=== PATIENT | male | born 1960 | race Caucasian/White ===

== ENCOUNTER → 2016-11-18 | Outpatient (CLI) | payer OTHER ==
[~2016-11-18] MED LIST: ANT25 PO; CLC100 PO; OMEP10CA2 PO; PRED20TA PO; SILD1TAB11 PO
== END | disposition home or self-care (01) ==
LOC: C.LABBC 13:15
PROVIDERS: ATTEND Urology
DX: C61 Malignant neoplasm of prostate (principal)

== ENCOUNTER 2017-01-03 12:36 | Emergency (ER) | payer OTHER ==
[~2017-01-03] VITALS: Ht 177.8 cm; Wt 74.8 kg
[~2017-01-03 12:36] MED LIST changes: -ANT25 PO; -PRED20TA PO
[2017-01-03 12:37] VITALS: TEMP 36.5; Ht 177.8 cm; Wt 74.8 kg
[2017-01-03] MEDS ORDERED: SODIUM CHLORIDE 0.9% 1000ML 1,000 ML IV STA (13:15)
[2017-01-03] MEDS ORDERED: MECLIZINE HCL 25 MG TAB PO STA (13:15)
[2017-01-03] MEDS ORDERED: METHYLPREDNISOLONE 125 MG VIAL IV STA (13:15)
[2017-01-03] MEDS ORDERED: SODIUM CHLORIDE 0.9% 500ML 500 ML IV STA (13:15)
[2017-01-03 13:39] LABS: BASO % 0.6 %; BASO ABS # 0.04 K/uL (0-0.2); COMPLETE YES; EOS % 0.8 %; HEMATOCRIT 42.5 % (42-52); IG% 0.2 %; LYMPH % 38.2 %; LYMPH ABS # 2.39 K/uL (1.2-3.4); MEAN CELL VOLUME 92.8 fL (80-100); MEAN CORPUSCULAR HEMOGLOBIN 32.1 pg (25-34); MEAN CORPUSCULAR HGB CONC 34.6 g/dl (32-36); MEAN PLATELET VOLUME 9.5 fL (7.4-10.4); MONO % 7.2 %; PLATELET COUNT 246 K/uL (130-400); RED BLOOD COUNT 4.58 M/uL (4.7-6.1); WHITE BLOOD COUNT 6.26 K/uL (4.8-10.8)
[2017-01-03 13:46] LABS: ALT/SGPT 15 U/L (12-78); AST/SGOT 16 U/L (15-37); BLOOD UREA NITROGEN 19 mg/dl (7-18); BUN/CREATININE RATIO 17.7 (10-20); CALCIUM 8.6 mg/dl (8.5-10.1); CARBON DIOXIDE 29 mmol/L (21-32); CHLORIDE 105 mmol/L (98-107); GLUCOSE 132 mg/dl (70-99); MAGNESIUM 2.3 mg/dl (1.8-2.4); POTASSIUM 3.6 mmol/L (3.5-5.1); SODIUM 143 mmol/L (136-145)
[2017-01-03 13:49] LABS: ALKALINE PHOSPHATASE 62 U/L (45-117)
--- NOTE | 2017-01-03 14:14 | DIAGNOSTIC IMAGING REPORT ---
CT OF THE HEAD WITHOUT CONTRAST CLINICAL HISTORY: Vertigo. COMPARISON STUDY: No previous studies for comparison. CT DOSE: 537.48 mGy.cm TECHNIQUE: Helical axial images of the head were obtained without IV contrast. Automated exposure control was utilized for the study. FINDINGS: No acute intracranial hemorrhage, midline shift or mass effect is present. Ventricular system is normal. Basilar cisterns are patent. There are no extra-axial collections. Sheets-white differentiation is maintained. There are no findings to suggest acute dural sinus thrombosis or acute territorial infarct. There is no calvarial fracture. Visualized portions of the sinuses and the mastoid air cells are clear. IMPRESSION: No acute intracranial findings. Electronically signed by: Artur Torres M.D. 01/03/2017 2:13 PM Dictated Date/Time: 01/03/2017 2:10 PM
[2017-01-03] MEDS ORDERED: PRED20TA PO (16:26)
[2017-01-03] MEDS ORDERED: ANT25 PO (16:26)
--- NOTE | 2017-01-03 16:33 | EMERGENCY ROOM VISIT NOTE ---
History Report prepared by Ricky: Fatoumata Moreno Under the Supervision of: Dr. Tigist Rodriguez M.D. First contact with patient: 13:09 Chief Complaint: DIZZY Stated Complaint: DIZZY, SWEATY, NEAR SYNCOPE Nursing Triage Summary: Patient reports sudden onset of dizziness and cold clammy feeling while standing at work states this happened aroundf [id number]. Patient cool clammy and dizzy on arrival to ED also pale in color. History of Present Illness The patient is a 56 year old male who presents to the Emergency Room with complaints of persistent dizziness starting this morning. He was at work standing at his desk when he started feeling dizzy like he might pass out. He reports room spinning which worsens with changing position and moving. He sat down and felt better after eating a candy bar. He drove home and felt dizzy again when he got out of the car. He has never experienced this dizziness before. He is currently feeling better. He has been more pale lately. He denies any nausea, vomiting, chest pain or SOB with exertion. He has not had any cough , cold, or allergies recently. He exercises regularly without trouble. He does not smoke. He denies any other medical problems. Source of History: patient Onset: this morning Position: other (global) Quality: other (dizziness) Timing: other (persistent) Modifying Factors (Worsening): movement Associated Symptoms: No SOB, No chest pain, No cough, No nausea, No vomiting Note: Pt reports being pale. Review of Systems See HPI for pertinent positives & negatives. A total of 10 systems reviewed and were otherwise negative. Past Medical & Surgical Surgical Problems: (1) S/P cholecystectomy Family History Cancer Diabetes mellitus Gallbladder disease Hypertension Social History Smoking Status: Never Smoker Alcohol Use: occasionally Drug Use: none Marital Status: Housing Status: lives with family Occupation Status: employed Current/Historical Medications Scheduled Omeprazole (Prilosec), 20 MG PO BID Prednisone (Prednisone), 40 MG PO DAILY Sildenafil Citrate (Viagra), 25 MG PO PRN Scheduled PRN Meclizine HCl (Meclizine HCl), 1 TAB PO Q8 PRN for vertigo Allergies Coded Allergies: NO KNOWN DRUG ALLERGIES (Verified Allergy, Unknown, NKDA, 01/03/17) Uncoded Allergies: Seasonal Allergies (Allergy, Mild, Respiratory , 04/10/15) Physical Exam Vital Signs Date Time Temp Pulse Resp B/P Pulse Ox O2 Delivery O2 Flow Rate FiO2 01/03/17 16:53 61 18 121/69 98 01/03/17 15:33 115/73 01/03/17 15:31 46 7 100 01/03/17 15:26 51 8 100 01/03/17 15:21 59 16 100 01/03/17 15:16 48 10 100 01/03/17 15:06 55 19 100 01/03/17 15:01 50 11 100 01/03/17 14:56 52 5 100 01/03/17 14:51 63 11 100 01/03/17 14:46 48 13 100 01/03/17 14:41 48 8 100 01/03/17 14:36 57 5 99 01/03/17 14:31 48 6 100 01/03/17 14:31 44 16 136/64 100 Room Air 01/03/17 14:30 136/64 01/03/17 14:06 54 01/03/17 13:36 72 15 01/03/17 13:36 46 16 121/72 99 Room Air 01/03/17 13:35 121/72 01/03/17 12:52 126/73 01/03/17 12:49 47 138/74 55 126/73 01/03/17 12:37 36.5 58 20 166/73 100 Room Air Physical Exam Vital signs reviewed. General: Well-appearing, in no significant distress. HEENT: No scleral icterus, PERRLA, neck supple. Atraumatic. Cardiovascular: Regular rate and rhythm, no extra sounds. Pulmonary: Clear to auscultation bilaterally, normal work of breathing. Abdomen: Soft, nontender, nondistended, positive bowel sounds. Musculoskeletal: Atraumatic, no peripheral edema. Neurologic: Patient awake alert and oriented x 3, full strength in all 4 extremities. Cranial nerves 2 through 12 grossly intact. Skin: Warm, dry, no rash Medical Decision & Procedures ER Provider Diagnostic Interpretation: Radiology results as stated below per my review and radiologist interpretation: CT OF THE HEAD WITHOUT CONTRAST CLINICAL HISTORY: Vertigo. COMPARISON STUDY: No previous studies for comparison. CT DOSE: 537.48 mGy.cm TECHNIQUE: Helical axial images of the head were obtained without IV contrast. Automated exposure control was utilized for the study. FINDINGS: No acute intracranial hemorrhage, midline shift or mass effect is present. Ventricular system is normal. Basilar cisterns are patent. There are no extra-axial collections. Sheets-white differentiation is maintained. There are no findings to suggest acute dural sinus thrombosis or acute territorial infarct. There is no calvarial fracture. Visualized portions of the sinuses and the mastoid air cells are clear. IMPRESSION: No acute intracranial findings. Electronically signed by: Artur Torres M.D. 01/03/2017 2:13 PM Dictated Date/Time: 01/03/2017 2:10 PM Laboratory Results 01/03/17 12:45 Red Blood Count 4.58, Mean Corpuscular Volume 92.8, Mean Corpuscular Hemoglobin 32.1, Mean Corpuscular Hemoglobin Concent 34.6, Mean Platelet Volume 9.5, Neutrophils (%) (Auto) 53.0, Lymphocytes (%) (Auto) 38.2, Monocytes (%) (Auto) 7.2, Eosinophils (%) (Auto) 0.8, Basophils (%) (Auto) 0.6, Neutrophils # (Auto) 3.32, Lymphocytes # (Auto) 2.39, Monocytes # (Auto) 0.45, Eosinophils # (Auto) 0.05, Basophils # (Auto) 0.04 01/03/17 12:45 Test 01/03/17 12:45 White Blood Count 6.26 K/uL (4.8-10.8) Red Blood Count 4.58 M/uL (4.7-6.1) Hemoglobin 14.7 g/dL (14.0-18.0) Hematocrit 42.5 % (42-52) Mean Corpuscular Volume 92.8 fL (80-100) Mean Corpuscular Hemoglobin 32.1 pg (25-34) Mean Corpuscular Hemoglobin Concent 34.6 g/dl (32-36) Platelet Count 246 K/uL (130-400) Mean Platelet Volume 9.5 fL (7.4-10.4) Neutrophils (%) (Auto) 53.0 % Lymphocytes (%) (Auto) 38.2 % Monocytes (%) (Auto) 7.2 % Eosinophils (%) (Auto) 0.8 % Basophils (%) (Auto) 0.6 % Neutrophils # (Auto) 3.32 K/uL (1.4-6.5) Lymphocytes # (Auto) 2.39 K/uL (1.2-3.4) Monocytes # (Auto) 0.45 K/uL (0.11-0.59) Eosinophils # (Auto) 0.05 K/uL (0-0.5) Basophils # (Auto) 0.04 K/uL (0-0.2) RDW Standard Deviation 42.4 fL (36.4-46.3) RDW Coefficient of Variation 12.5 % (11.5-14.5) Immature Granulocyte % (Auto) 0.2 % Immature Granulocyte # (Auto) 0.01 K/uL (0.00-0.02) Anion Gap 9.0 mmol/L (3-11) Est Creatinine Clear Calc Drug Dose 75.6 ml/min Estimated GFR () 85.3 Estimated GFR (Non- 73.6 BUN/Creatinine Ratio 17.7 (10-20) Calcium Level 8.6 mg/dl (8.5-10.1) Magnesium Level 2.3 mg/dl (1.8-2.4) Total Bilirubin 0.4 mg/dl (0.2-1) Direct Bilirubin < 0.1 mg/dl (0-0.2) Aspartate Amino Transf (AST/SGOT) 16 U/L (15-37) Alanine Aminotransferase (ALT/SGPT) 15 U/L (12-78) Alkaline Phosphatase 62 U/L (45-117) Total Protein 7.3 gm/dl (6.4-8.2) Albumin 4.3 gm/dl (3.4-5.0) Laboratory results per my review. Medications Administered Medications (Trade) Dose Ordered Sig/Debo Route Start Time Stop Time Status Last Admin Dose Admin Sodium Chloride 500 ml @ 999 mls/hr Q31M STAT IV 01/03/17 13:15 01/03/17 13:45 DC 01/03/17 13:15 999 MLS/HR Sodium Chloride (Nss 1000ml) 1,000 ml @ 150 mls/hr Q6H40M STAT IV 01/03/17 13:15 01/03/17 17:11 DC 01/03/17 13:15 150 MLS/HR Meclizine HCl (Antivert Tab) 25 mg NOW STAT PO 01/03/17 13:15 01/03/17 13:21 DC 01/03/17 13:35 25 MG Methylprednisolone Sodium Succinate (Solu-Medrol IV) 125 mg NOW STAT IV 01/03/17 13:15 01/03/17 13:21 DC 01/03/17 13:36 125 MG Meclizine HCl (Antivert 25MG Home Pack) 1 homepack UD ONCE PO 01/03/17 17:00 01/03/17 17:01 DC 01/03/17 16:57 1 HOMEPACK ECG Indication: other (dizziness) Rate (beats per minute): 51 Rhythm: sinus bradycardia Findings: no acute ischemic change, no ectopy ED Course 1313: Past medical records reviewed. The patient was evaluated in room A10. A complete history and physical examination was performed. 1315: Solu-Medrol IV 125 mg IV, Meclizine HCl 25 mg PO, NSS 1000 ml @ 150 mls/ hr IV, NSS 500 ml @ 999 mls/hr IV. 1557: Upon reevaluation, the patient appeared to have improvement of his symptoms. I discussed findings with him. He verbalized agreement of the treatment plan. He was discharged home. Medical Decision Differential diagnosis: Etiologies such as benign positional vertigo, dehydration, hypovolemia, anemia, tumor, infection, hypoglycemia, electrolyte abnormalities, cardiac sources, intracerebral event, toxicologic, neurologic, as well as others were entertained. This patient was evaluated and appeared to be in no significant distress. IV access was obtained and laboratory work was drawn. The patient was placed on the cafeteria monitor and found to be in a normal sinus rhythm. CT scan of head was performed and reveals no evidence of acute intracranial pathology. The patient was given IV hydration, oral meclizine and IV Solu-Medrol. The patient had significant relief of his symptoms. Laboratory work is fairly unrevealing. The patient was informed of the findings. I suspect this is a benign positional vertigo. He was discharged with a prescription for meclizine and will use prednisone for the next 4 days if needed. patient will follow-up with his primary care physician this week and return to the ER for worsening of symptoms or any medical concerns. Impression Primary Impression: Vertigo Scribe Attestation The scribe's documentation has been prepared under my direction and personally reviewed by me in its entirety. I confirm that the note above accurately reflects all work, treatment, procedures, and medical decision making performed by me. Departure Information Dispostion Home / Self-Care Prescriptions Prednisone (Prednisone) 20 Mg Tab 40 MG PO DAILY, #8 TAB Prov: Tigist Rodriguez M.D. 01/03/17 Meclizine HCl (Meclizine HCl) 25 Mg Tab 1 TAB PO Q8 Y for vertigo, #30 TABS Prov: Tigist Rodriguez M.D. 01/03/17 Referrals Luis Vance M.D.([facility]) (PCP) Forms HOME CARE DOCUMENTATION FORM, IMPORTANT VISIT INFORMATION Patient Instructions My [facility] Additional Instructions Diagnosis: Vertigo Meclizine 25 mg every 6-8 hours as needed for dizziness. Prednisone 40 mg daily for 4 more days if symptoms persist. Drink plenty of clear fluids. Follow-up with your physician this week for reevaluation if symptoms continue. Return to the ER for worsening of symptoms or any medical concerns.
[2017-01-03 16:53] VITALS: BP 121/69; PULSE 61; O2SAT 98
[2017-01-03] MEDS ORDERED: MECLIZINE HCL 25MG HOME PACK PO ONE (17:00)
== END 2017-01-03 16:54 | disposition home or self-care (01) ==
LOC: C.EDB 12:38 → C.EDA 16:54
DX: R42 Dizziness and giddiness (principal); Z90.49 Acquired absence of other specified parts of digestive tract; Z79.899 Other long term (current) drug therapy; Z80.9 Family history of malignant neoplasm, unspecified; Z83.3 Family history of diabetes mellitus; Z83.79 Family history of other diseases of the digestive system; Z82.49 Family history of ischemic heart disease and other diseases of the circulatory system

== ENCOUNTER → 2017-05-13 | Outpatient (CLI) | payer OTHER ==
[~2017-05-13] MED LIST changes: +ANT25 PO; -CLC100 PO; +PRED20TA PO
== END | disposition home or self-care (01) ==
LOC: C.LABBC 13:59
PROVIDERS: ATTEND Urology
DX: C61 Malignant neoplasm of prostate (principal)

== ENCOUNTER → 2017-11-22 | Outpatient (CLI) | payer OTHER ==
[~2017-11-22] MED LIST changes: -PRED20TA PO
== END | disposition home or self-care (01) ==
LOC: C.LABBC 11:54
PROVIDERS: ATTEND Urology
DX: C61 Malignant neoplasm of prostate (principal)

== ENCOUNTER 2025-07-13 16:00 | Inpatient (IN) ==
--- NOTE | 2025-07-13 16:25 | Emergency Department Note ---
History of Present Illness General Chief Complaint: Abdominal Pain Stated Complaint: AB PAIN Time Seen by Provider: 07/13/25 16:04 History of Present Illness Provider Complaint: abdominal pain Onset (ago): 1 day(s) Pain Consistency: constant Location: diffuse Quality: + stabbing and + sharp Relieved By: + nothing Exacerbated By: + nothing Context: + recent surgery/procedure (Surgery by Dr. Lind today for hernia repair); no foreign travel, no possible food poisoning or no recent antibiotic use Associated Symptoms: no nausea, no vomiting, no diarrhea, no fever, no chills, no dysuria, no hematemesis, no hematuria, no headache, no neck pain and no back pain Home Medications Medication Instructions Recorded Confirmed Type omeprazole 20 mg capsule,delayed 20 mg PO UD PRN Heartburn 06/08/22 07/13/25 History release loratadine 10 mg tablet (Claritin) 10 mg PO UD PRN allergies 06/19/22 07/13/25 History aspirin 81 mg tablet,delayed 81 mg PO BID #60 tabs 06/24/22 07/13/25 Rx release montelukast 10 mg tablet 10 mg PO DAILY 07/13/25 07/13/25 History oxycodone-acetaminophen 5 mg-325 1 tab PO UD PRN pain 07/13/25 07/13/25 History mg tablet (Percocet) Allergies Allergy/AdvReac Type Severity Reaction Status Date / Time No Known Drug Allergies Allergy Unknown NKDA Unverified 07/13/25 20:53 azithromycin Allergy Swelling Verified 07/13/25 20:53 of the Eye Seasonal Allergies Allergy Mild Respiratory Uncoded 06/24/22 06:51 Past Med/Surg History Problem List (Updated 07/13/25 @ 22:22 by Jani Nicholson MD) Accidental injury of intestine during surgical procedure (Acute) S/P inguinal hernia repair Colon perforation Abdominal pain Encounter for pre-operative examination Prostate cancer (Acute) "Intermediate Risk: Arjun 4 + 3, PSA 4.86, cT1c, group IIA" Postoperative edema (Acute) Tear of meniscus of left knee Medical History Hx of malignant neoplasm of prostate 2013 History of bradycardia "naturally slow heart rate" History of COVID-19 08/26, [facility] in [place], [place]; not hosp; "mild symptoms">resolved. Hx of seasonal allergies Hx of gastroesophageal reflux (GERD) Surgical History Hx of arthroscopy of right knee Hx of umbilical hernia repair Hx laparoscopic cholecystectomy History of esophagogastroduodenoscopy (EGD) Hx of colonoscopy Hx of prostatectomy for prostate cancer Social History Smoking Status: Unknown if ever smoked Second Hand Exposure: No; Do You Dip or Chew Tobacco: No; Hx Alcohol Use: Yes Alcohol type: beer Hx Substance Use: No Preferred Language: Bruneian Communication Ability: Effective Application Services Manager Required: No Beliefs That Will Affect Care: None Current Living Situation: Spouse and Family Feels Safe at Home: Yes Assistive Devices: Contacts Physical Exam 2 Vital Signs: Vital Signs - 24 hr 07/13/25 16:25 07/13/25 16:26 07/13/25 16:51 Temperature 36.8 C Temperature Source Oral Pulse Rate 70 73 Pulse Rate [Finger ] 80 Pulse Rate from Sp O2 Sensor Respiratory Rate 16 22 Blood Pressure 121/85 Blood Pressure [Ri ght Arm] 150/99 H Blood Pressure Cecy n 97 Blood Pressure Cecy n [Right Arm] 116 Pulse Oximetry 93 99 Oxygen Delivery Me thod Room Air Nasal Cannula Oxygen Flow Rate 2 Sepsis Recent Feve r Within 48 Hours No Sepsis New/Unexpla ined Change in Men scottie Status No Sepsis Action Take n by Nursing No Action Required 07/13/25 17:12 07/13/25 17:15 07/13/25 17:30 Temperature Temperature Source Pulse Rate Pulse Rate [Finger ] 76 73 77 Pulse Rate from Sp O2 Sensor Respiratory Rate 16 22 16 Blood Pressure Blood Pressure [Ri ght Arm] 142/98 H 152/101 H 156/94 H Blood Pressure Cecy n Blood Pressure Cecy n [Right Arm] 112 118 114 Pulse Oximetry 97 98 98 Oxygen Delivery Me thod Nasal Cannula Nasal Cannula Nasal Cannula Oxygen Flow Rate 2 2 2 Sepsis Recent Feve r Within 48 Hours Sepsis New/Unexpla ined Change in Men scottie Status Sepsis Action Take n by Nursing 07/13/25 17:45 07/13/25 18:00 07/13/25 18:00 Temperature Temperature Source Pulse Rate 71 72 Pulse Rate [Finger ] Pulse Rate from Sp O2 Sensor 73 Respiratory Rate 16 17 Blood Pressure 165/105 H 150/97 H 150/97 H Blood Pressure [Ri ght Arm] Blood Pressure Cecy n 122 114 122 Blood Pressure Cecy n [Right Arm] Pulse Oximetry 99 97 Oxygen Delivery Me thod Nasal Cannula Nasal Cannula Oxygen Flow Rate 2 2 Sepsis Recent Feve r Within 48 Hours Sepsis New/Unexpla ined Change in Men scottie Status Sepsis Action Take n by Nursing 07/13/25 18:00 07/13/25 18:00 07/13/25 18:00 Temperature Temperature Source Pulse Rate Pulse Rate [Finger ] Pulse Rate from Sp O2 Sensor Respiratory Rate Blood Pressure 150/97 H 150/97 H 150/97 H Blood Pressure [Ri ght Arm] Blood Pressure Cecy n 122 122 122 Blood Pressure Cecy n [Right Arm] Pulse Oximetry Oxygen Delivery Me thod Oxygen Flow Rate Sepsis Recent Feve r Within 48 Hours Sepsis New/Unexpla ined Change in Men scottie Status Sepsis Action Take n by Nursing 07/13/25 18:12 07/13/25 18:15 07/13/25 18:15 Temperature Temperature Source Pulse Rate 76 72 Pulse Rate [Finger ] 73 Pulse Rate from Sp O2 Sensor 73 72 Respiratory Rate 23 18 14 Blood Pressure Blood Pressure [Ri ght Arm] 158/92 H Blood Pressure Cecy n Blood Pressure Cecy n [Right Arm] 114 Pulse Oximetry 99 98 97 Oxygen Delivery Me thod Nasal Cannula Oxygen Flow Rate 2 Sepsis Recent Feve r Within 48 Hours Sepsis New/Unexpla ined Change in Men scottie Status Sepsis Action Take n by Nursing 07/13/25 18:15 07/13/25 18:15 07/13/25 18:15 Temperature Temperature Source Pulse Rate Pulse Rate [Finger ] Pulse Rate from Sp O2 Sensor Respiratory Rate Blood Pressure 158/92 H 158/92 H 158/92 H Blood Pressure [Ri ght Arm] Blood Pressure Cecy n 114 114 114 Blood Pressure Ccey n [Right Arm] Pulse Oximetry Oxygen Delivery Me thod Oxygen Flow Rate Sepsis Recent Feve r Within 48 Hours Sepsis New/Unexpla ined Change in Men scottie Status Sepsis Action Take n by Nursing 07/13/25 18:15 07/13/25 18:15 Temperature Temperature Source Pulse Rate Pulse Rate [Finger ] Pulse Rate from Sp O2 Sensor Respiratory Rate Blood Pressure 158/92 H 158/92 H Blood Pressure [Ri ght Arm] Blood Pressure Cecy n 114 114 Blood Pressure Cecy n [Right Arm] Pulse Oximetry Oxygen Delivery Me thod Oxygen Flow Rate Sepsis Recent Feve r Within 48 Hours Sepsis New/Unexpla ined Change in Men scottie Status Sepsis Action Take n by Nursing Physical Exam: Physical Exam GENERAL: oriented to person, place, and time. appears well-developed and well- nourished. HENT: Exam performed. - Head: Normocephalic and atraumatic. EYES: Conjunctivae and EOM are normal. Right eye exhibits no discharge. Left eye exhibits no discharge. No scleral icterus. NECK: Normal range of motion. Neck supple. No JVD present. CV: Tachycardic rate, regular rhythm, normal heart sounds and intact distal pulses. There is no peripheral edema. Palpable radial pulses bue. PULM/CHEST: Effort normal and breath sounds normal. No respiratory distress. No stridor. no wheezes. no rales. ABD: Abdomen is not rigid and has diffuse tenderness to palpation. NEURO: Motor and sensation grossly intact. SKIN: Skin is warm and dry. He is not diaphoretic. PSYCH: normal mood and affect. Behavior is normal. Judgment and thought content normal. Course Course 1604: The patient was evaluated in room B7. A complete history and physical exam was performed Cardiac monitoring: An order was placed for continuous cardiac monitoring. The monitor shows a rate of 100 with sinus rhythm interpreted by me 1627: External medical records were obtained by [facility] case management rn. There is an operative note from Dr. Ann today. His note states: that a transverse left subcostal incision was made and visualized 11 mm trocar was placed in the peritoneal cavity while applying upward traction on the abdominal wall with towel clamps. A small bowel injury was noted medially. An optically viewed 5 mm blunt trocar and port was inserted directly viewing layers of the abdominal wall and applying gentle upward traction and towel clamps into the peritoneal cavity in the left lower quadrant. A 3-0 silk suture was then inserted into the small bowel injury was repaired with interrupted silk simple sutures. There is no bile spillage in the repair completely closed the injury. Once the repair was done the laparoscopic EndoShears and blunt dissection was used to reduce the hernia contents. Chest x-ray reviewed by me does not show free air underneath the diaphragm. I- STAT is within normal limits. Patient be taken to CT. IV fluids IV analgesia ordered for the patient. Empiric Zosyn started on the patient. 1644: Vital signs stable. CT of the abdomen pelvis viewed by me does show some possible free air. Spoke with Dr. Botello on-call general surgery. She states she will evaluate the patient. 1657: White blood cell count 15. CT of the abdomen pelvis official read shows small amount of free intraperitoneal air concerning for bowel perforation with a small amount of ascites. Spoke with Dr. Botello and she states she is on her way to evaluate the patient. 175: Vital signs stable. Dr. Botello evaluated patient at bedside and states no need for emergent OR at this point. She states they will watch patient overnight. She agrees to be on consult recommends admission to medicine. Administered Medications Lactated Ringer's (Lr) 1,000 mls @ 100 mls/hr IV .Q10H ANNAMARIE Stop: 07/14/25 16:00 Last Admin: 07/13/25 18:36 Dose: 100 mls/hr Documented By: CESAR Morphine Sulfate (Morphine Sulfate 4 Mg/Ml 1 Ml Carp\\Vial) 4 mg IV Q1HWA PRN PRN Reason: Severe Pain (Scale 7, 8, 9,10) Stop: 07/27/25 19:56 Last Admin: 07/13/25 20:52 Dose: 4 mg Documented By: ANTONIO Discontinued Medications Sodium Chloride (Nss) 1,000 mls @ 999 mls/hr IV .Q1H1M ANNAMARIE Stop: 07/13/25 18:15 Last Admin: 07/13/25 17:45 Dose: Not Given Documented By: Admin: 07/13/25 17:11 Dose: Not Given Documented By: CESAR Piperacillin Sod/Tazobactam Sod (Zosyn) 4.5 gm in 100 mls @ 200 mls/hr IV NOW STA Stop: 07/13/25 16:37 Last Infusion: 07/13/25 17:44 Dose: Infused Documented By: Admin: 07/13/25 16:45 Dose: 200 mls/hr Documented By: CESAR Parenteral Electrolytes (Plasma-Lyte A Ph 7.4) 1,000 mls @ 999 mls/hr IV .Q1H1M ONE Stop: 07/13/25 18:10 Last Infusion: 07/13/25 18:19 Dose: Infused Documented By: Admin: 07/13/25 17:11 Dose: 999 mls/hr Documented By: CESAR Calcium Gluconate () 1,000 mg in 60 mls @ 240 mls/hr IV NOW STA Stop: 07/13/25 18:32 Last Infusion: 07/13/25 19:53 Dose: Infused Documented By: Admin: 07/13/25 18:36 Dose: 240 mls/hr Documented By: CESAR Ioversol (Optiray 320 100ml) 94 ml IV ONCE ONE Stop: 07/13/25 16:37 Last Admin: 07/13/25 16:36 Dose: 94 ml Documented By: MISTY Morphine Sulfate (Morphine Sulfate 4 Mg/Ml 1 Ml Carp\\Vial) 4 mg IV NOW STA Stop: 07/13/25 16:26 Last Admin: 07/13/25 16:45 Dose: 4 mg Documented By: CESAR Medical Decision Making Medical Records Attestation: I reviewed the patient's medical records. External medical records were obtained by [facility] case management rn. There is an operative note from Dr. Ann today. His note states: that a transverse left subcostal incision was made and visualized 11 mm trocar was placed in the peritoneal cavity while applying upward traction on the abdominal wall with towel clamps. A small bowel injury was noted medially. An optically viewed 5 mm blunt trocar and port was inserted directly viewing layers of the abdominal wall and applying gentle upward traction and towel clamps into the peritoneal cavity in the left lower quadrant. A 3-0 silk suture was then inserted into the small bowel injury was repaired with interrupted silk simple sutures. There is no bile spillage in the repair completely closed the injury. Once the repair was done the laparoscopic EndoShears and blunt dissection was used to reduce the hernia contents. Laboratory Data Attestation: I reviewed the patient's lab results. 07/13/25 16:18 07/13/25 16:18 Lab Results 07/13/25 07/13/25 07/13/25 Range/Units 16:18 16:23 17:01 WBC 15.00 H (4.8-10.8) K/ul RBC 4.58 L (4.70-6.10) M/uL Hgb 14.4 (14.0-18.0) g/dl POC Hgb 14.6 (14.0-18.0) g/dl Hct 41.8 L (42.0-52.0) % POC Hct 43 (42-52) % MCV 91.3 (80.0-100.0) fL MCH 31.4 (25.0-34.0) pg MCHC 34.4 (32.0-36.0) g/dL RDW Std Deviation 41.2 (36.4-46.3) fL RDW Coeff of Rosio 12.4 (11.5-14.5) % Plt Count 274 (130-400) K/uL MPV 9.4 (9.4-12.4) fL Immature Gran % (Auto) 0.3 % Neut % (Auto) 89.6 % Lymph % (Auto) 4.6 % Whitley % (Auto) 5.4 % Eos % (Auto) 0.0 % Baso % (Auto) 0.1 % Neut # (Auto) 13.44 H (1.40-6.50) K/uL Lymph # (Auto) 0.69 L (1.20-3.40) K/uL Whitley # (Auto) 0.81 H (0.11-0.59) K/uL Eos # (Auto) 0.00 (0.00-0.50) K/uL Baso # (Auto) 0.02 (0.00-0.20) K/uL Immature Gran # (Auto) 0.04 (0.01-0.20) K/uL POC Sodium 139 (135-144) mmol/L Sodium 138 (136-145) mmol/L POC Potassium 3.5 (3.3-5.0) mmol/L Potassium 3.5 (3.5-5.1) mmol/L POC Chloride 105 (101-112) mmol/L Chloride 107 (98-107) mmol/L Carbon Dioxide 22 (21-32) mmol/L POC Total CO2 21 L (24-31) mmol/L Anion Gap 9 (3-11) POC Anion Gap 18.0 (16-25) mmol/L POC BUN 19 H (7-18) mg/dl BUN 19 (6-23) mg/dl Creatinine 0.84 (0.6-1.4) mg/dl POC Creatinine 0.8 (0.6-1.3) mg/dl Est Cr Clr Drug Dosing 89.3 ml/min eGFR 96.18 BUN/Creatinine Ratio 22.6 H (10-20) Glucose 182 H (70-99(Fasting)) mg/dl POC Glucose (other) 175 H (70-99) mg/dl Lactate 0.9 (0.4-2.0) mmol/L Calcium 7.9 L (8.6-10.3) mg/dl POC Ioniz Calcium Carmelo 1.10 L (1.12-1.32) mmol/l Magnesium 2.0 (1.7-2.4) mg/dl Total Bilirubin 0.4 (0.2-1.0) mg/dl Direct Bilirubin 0.1 (0-0.2) mg/dl AST 19 (13-39) U/L ALT 8 (7-52) U/L Alkaline Phosphatase 64 (34-104) U/L Troponin I High Sens < 2.3 (0-20) pg/ml Total Protein 7.0 (6.0-8.3) gm/dl Albumin 3.9 (3.4-5.0) gm/dl Procalcitonin 0.21 (0-0.5) ng/ml Urine Color Yellow Urine Appearance Clear (Clear) Urine pH 5.0 (4.5-7.5) Ur Specific [place] 1.027 (1.000-1.030) Urine Protein Negative (Negative) Urine Glucose (UA) Negative (Negative) Urine Ketones 1+ H (Negative) Urine Blood Negative (Negative) Urine Nitrite Negative (Negative) Urine Bilirubin Negative (Negative) Urine Urobilinogen Negative (Negative) Ur Leukocyte Esterase Negative (Negative) Urine Comment Imaging Data Attestation: I personally reviewed and interpreted this imaging study as follows: My Impression: Chest x-ray reviewed by me does not show free air underneath the diaphragm. CT abdomen pelvis: Possible free air Radiologist's Impression: Abdomen/Pelvis CT 07/13/25 16:09 Clinical History: Abdominal pain. Concern for bowel perforation Technique: Axial computed tomography images were obtained of the abdomen and pelvis after the administration of intravenous contrast. No prior CT is available for comparison. Findings: There is a small amount of free intraperitoneal air. There is a small amount of ascites The liver is overall of normal size, attenuation, and contour with no sign of cirrhosis or significant fatty infiltration. No liver mass lesion is seen. The portal vein is patent. The gallbladder has been removed. No bile duct dilatation is noted. The spleen is of normal size. No focal splenic lesion is evident. The pancreas appears normal with no sign of acute or chronic pancreatitis and no mass lesion noted. The pancreatic duct is of normal caliber. The adrenal glands appear unremarkable. No definite renal or proximal ureteral calculi are seen on this contrast-enhanced study. There is no hydronephrosis or perinephric stranding. No renal mass lesion is identified. There is a 7 mm right renal cyst The aorta is of normal caliber. No abdominal adenopathy is seen. There is a small umbilical hernia containing fluid and air There is a small hiatal hernia. There is no definite sign of small bowel obstruction. There is wall thickening of the jejunum with mild adjacent mesenteric fluid and edema. There is colonic diverticulosis with possible acute diverticulitis at the descending colon. No clear area of pneumatosis is seen No distal ureteral or bladder calculi are seen. No bladder mass lesion is evident. The iliac arteries are of normal caliber. No pelvic adenopathy is noted. There is a small right inguinal hernia containing only fat There is a small right pleural effusion. There is bilateral lower lobe atelectasis. There is mild fluid-filled dilatation of the visualized esophagus Mild thoracolumbar degenerative disc disease is seen. No fracture is identified. No focal osseous lesion is seen Impression: 1. Small amount of free intraperitoneal air, concerning for bowel perforation 2. Small amount of ascites 3. Wall thickening of the jejunum, concerning for infectious enteritis or inflammatory bowel disease 4. Small right pleural effusion and bilateral lower lobe atelectasis 5. Small hiatal hernia. There is mild esophageal dilatation that could be due to dysmotility or reflux 6. Small right renal cyst 7. Diverticulosis with possible acute diverticulitis of the descending colon ACT 112: Positive. There are findings on this exam that require communication between the performing entity and the patient following Patient Test Result Information Act ([place] ACT 112) guidelines. Electronically signed by Kip Estevez 07-13-2025 4:52 PM Chest X-Ray 07/13/25 16:10 Chest radiograph, one view History: Chest pain Comparison: None Findings: Single AP view of the chest performed. No focal consolidation or pleural effusion. No pneumothorax. The cardiomediastinal silhouette is within normal limits. Normal pulmonary vascularity. No evidence for lymphadenopathy. No visualized bony or soft tissue abnormality. Impression: Normal chest radiograph Electronically signed by Herbie Rodriguez 07-13-2025 4:35 PM [facility] Narrative 1604: The patient was evaluated in room B7. A complete history and physical exam was performed Cardiac monitoring: An order was placed for continuous cardiac monitoring. The monitor shows a rate of 100 with sinus rhythm interpreted by me 1627: External medical records were obtained by [facility] case management r[facility]. There is an operative note from Dr. Ann today. His note states: that a transverse left subcostal incision was made and visualized 11 mm trocar was placed in the peritoneal cavity while applying upward traction on the abdominal wall with towel clamps. A small bowel injury was noted medially. An optically viewed 5 mm blunt trocar and port was inserted directly viewing layers of the abdominal wall and applying gentle upward traction and towel clamps into the peritoneal cavity in the left lower quadrant. A 3-0 silk suture was then inserted into the small bowel injury was repaired with interrupted silk simple sutures. There is no bile spillage in the repair completely closed the injury. Once the repair was done the laparoscopic EndoShears and blunt dissection was used to reduce the hernia contents. Chest x-ray reviewed by me does not show free air underneath the diaphragm. I- STAT is within normal limits. Patient be taken to CT. IV fluids IV analgesia ordered for the patient. Empiric Zosyn started on the patient. 1644: Vital signs stable. CT of the abdomen pelvis viewed by me does show some possible free air. Spoke with Dr. Botello on-call general surgery. She states she will evaluate the patient. 1657: White blood cell count 15. CT of the abdomen pelvis official read shows small amount of free intraperitoneal air concerning for bowel perforation with a small amount of ascites. Spoke with Dr. Botello and she states she is on her way to evaluate the patient. 1752: Vital signs stable. Dr. Botello evaluated patient at bedside and states no need for emergent OR at this point. She states they will watch patient overnight. She agrees to be on consult recommends admission to medicine. Impression & Plan Accidental injury of intestine during surgical procedure Discharge Plan Visit Data Chief Complaint: Abdominal Pain Stated Complaint: AB PAIN ED Provider: Jani Nicholson Discharge Problem: Accidental injury of intestine during surgical procedure Patient Disposition: Admitted As Inpatient Condition: Fair Discharge Instructions Interventions: ED Discharge Assessment Last Done: 07/13/25 21:22
--- NOTE | 2025-07-13 16:35 | XRay Report ---
Chest radiograph, one view History: Chest pain Comparison: None Findings: Single AP view of the chest performed. No focal consolidation or pleural effusion. No pneumothorax. The cardiomediastinal silhouette is within normal limits. Normal pulmonary vascularity. No evidence for lymphadenopathy. No visualized bony or soft tissue abnormality. Impression: Normal chest radiograph Electronically signed by Herbie Rodriguez 07-13-2025 4:35 PM
[2025-07-13] MEDS: OPTIRAY 320 100ml IV ONE (16:36)
[2025-07-13 16:43] LABS: Hematocrit (blood only) 41.8 % (42.0-52.0); Hemoglobin 14.4 g/dl (14.0-18.0); Immature Granulocytes # (auto) 0.04 K/uL (0.01-0.20); Immature Granulocytes % (auto) 0.3 %; Mean Corpuscular Hemoglobin 31.4 pg (25.0-34.0); Mean Corpuscular Volume 91.3 fL (80.0-100.0); Platelet Count 274 K/uL (130-400); RDW Standard Deviation 41.2 fL (36.4-46.3); Red Blood Count 4.58 M/uL (4.70-6.10); White Blood Count 15.00 K/ul (4.8-10.8)
[2025-07-13] MEDS: PIPERACILLIN/TAZOBACTAM 4.5 GM/100 ML BAG IV STA (16:45)
[2025-07-13] MEDS: SODIUM CHLORIDE 0.9% 1,000 ML IV SCH (16:45)
[2025-07-13] MEDS: MoRPHine SULFATE 4 MG/ML 1 ML CARP\\VIAL IV STA (16:45)
--- NOTE | 2025-07-13 16:53 | CT Scan Report ---
Clinical History: Abdominal pain. Concern for bowel perforation Technique: Axial computed tomography images were obtained of the abdomen and pelvis after the administration of intravenous contrast. No prior CT is available for comparison. Findings: There is a small amount of free intraperitoneal air. There is a small amount of ascites The liver is overall of normal size, attenuation, and contour with no sign of cirrhosis or significant fatty infiltration. No liver mass lesion is seen. The portal vein is patent. The gallbladder has been removed. No bile duct dilatation is noted. The spleen is of normal size. No focal splenic lesion is evident. The pancreas appears normal with no sign of acute or chronic pancreatitis and no mass lesion noted. The pancreatic duct is of normal caliber. The adrenal glands appear unremarkable. No definite renal or proximal ureteral calculi are seen on this contrast-enhanced study. There is no hydronephrosis or perinephric stranding. No renal mass lesion is identified. There is a 7 mm right renal cyst The aorta is of normal caliber. No abdominal adenopathy is seen. There is a small umbilical hernia containing fluid and air There is a small hiatal hernia. There is no definite sign of small bowel obstruction. There is wall thickening of the jejunum with mild adjacent mesenteric fluid and edema. There is colonic diverticulosis with possible acute diverticulitis at the descending colon. No clear area of pneumatosis is seen No distal ureteral or bladder calculi are seen. No bladder mass lesion is evident. The iliac arteries are of normal caliber. No pelvic adenopathy is noted. There is a small right inguinal hernia containing only fat There is a small right pleural effusion. There is bilateral lower lobe atelectasis. There is mild fluid-filled dilatation of the visualized esophagus Mild thoracolumbar degenerative disc disease is seen. No fracture is identified. No focal osseous lesion is seen Impression: 1. Small amount of free intraperitoneal air, concerning for bowel perforation 2. Small amount of ascites 3. Wall thickening of the jejunum, concerning for infectious enteritis or inflammatory bowel disease 4. Small right pleural effusion and bilateral lower lobe atelectasis 5. Small hiatal hernia. There is mild esophageal dilatation that could be due to dysmotility or reflux 6. Small right renal cyst 7. Diverticulosis with possible acute diverticulitis of the descending colon ACT 112: Positive. There are findings on this exam that require communication between the performing entity and the patient following Patient Test Result Information Act ([place] ACT 112) guidelines. Electronically signed by Kip Estevez 07-13-2025 4:52 PM
[2025-07-13 17:00] LABS: Anion Gap 9 (3-11); Blood Urea Nitrogen 19 mg/dl (6-23); Carbon Dioxide 22 mmol/L (21-32); Chloride 107 mmol/L (98-107); Potassium 3.5 mmol/L (3.5-5.1); Sodium 138 mmol/L (136-145)
[2025-07-13 17:01] LABS: Alanine Aminotransferase 8 U/L (7-52); Albumin Level 3.9 gm/dl (3.4-5.0); Alkaline Phosphatase 64 U/L (34-104); Bilirubin,Total 0.4 mg/dl (0.2-1.0); Calcium 7.9 mg/dl (8.6-10.3); Creatinine Clr Calc Pharmacy 89.3 ml/min; Glucose 182 mg/dl (70-99(Fasting)); Magnesium 2.0 mg/dl (1.7-2.4); Total Protein 7.0 gm/dl (6.0-8.3)
[2025-07-13 17:10] LABS: Appearance Urine Clear (Clear); Glucose Urine UA Negative (Negative)
[2025-07-13] MEDS: PLASMA-LYTE A 1,000 ML IV ONE (17:11)
[2025-07-13] MEDS ORDERED: HYDROmorphone INJ 0.5 MG/0.5 ML SYR IV PRN (18:17)
[2025-07-13] MEDS: LACTATED RINGER'S 1,000 ML IV SCH (18:36)
[2025-07-13] MEDS: CALCIUM GLUCONATE 1,000 MG/60 ML BAG IV STA (18:36)
--- NOTE | 2025-07-13 20:24 | Surgery Consultation ---
Date of Consultation July 13, 2025 Assessment & Plan (1) Abdominal pain: Patient is status post surgery as mentioned above. This surgery can be quite painful due to the mesh being tacked to the abdominal fascia and also from the air this insufflated into the abdomen that has to be reabsorbed. Patient with CAT scan findings with a small amount of free air and free fluid in the abdomen but this is also expected after this type of surgery when the CAT scan is done a few hours after the surgery. The patient does report feeling more comfortable. He is not tachycardic and afebrile without peritoneal signs at this time. I do recommend given the small bowel injury that was repaired primarily, admission and observation with IV antibiotics and likely will repeat x-ray in the morning. Patient may get out of bed and ambulate. If patient worsens clinically, we will likely consider diagnostic laparoscopy. Will continue to follow. History of Present Illness Reason for Consultation: Abdominal pain History of Present Illness This is a very pleasant 64-year-old male who underwent laparoscopic repair of ventral hernia with mesh today with Dr. Lind. Upon entry into the abdomen, he had a trocar injury of the small bowel to the side of it that he repaired primarily as he saw it right away. There was no contamination per his report and he proceeded with the repair uneventfully with mesh. The patient came to the emergency room due to worsening abdominal pain that was somewhat intractable. He has not passed flatus. He is urinating. He denies nausea or vomiting. He has gotten some narcotics and does report improvement in his pain. The ER doc reports that he did initially did have some tachycardia and was very tender diffusely. He did get a CT scan of his abdomen and pelvis that did show small amount of free air and some free fluid in the abdomen. I independently reviewed this myself. Allergies Allergy/AdvReac Type Severity Reaction Status Date / Time No Known Drug Allergies Allergy Unknown NKDA Verified 06/24/22 06:51 Seasonal Allergies Allergy Mild Respiratory Uncoded 06/24/22 06:51 Home Medications Medication Instructions Recorded Confirmed Type omeprazole 20 mg capsule,delayed 20 mg PO UD PRN Heartburn 06/08/22 07/13/25 History release loratadine 10 mg tablet (Claritin) 10 mg PO UD PRN allergies 06/19/22 07/13/25 History aspirin 81 mg tablet,delayed 81 mg PO BID #60 tabs 06/24/22 07/13/25 Rx release montelukast 10 mg tablet 10 mg PO DAILY 07/13/25 07/13/25 History oxycodone-acetaminophen 5 mg-325 1 tab PO UD PRN pain 07/13/25 07/13/25 History mg tablet (Percocet) Patient History Medical History Hx of malignant neoplasm of prostate 2013 History of bradycardia "naturally slow heart rate" History of COVID-19 08/26, [facility] [place], [place]; not hosp; "mild symptoms">resolved. Hx of seasonal allergies Hx of gastroesophageal reflux (GERD) Surgical History Hx of arthroscopy of right knee Hx of umbilical hernia repair Hx laparoscopic cholecystectomy History of esophagogastroduodenoscopy (EGD) Hx of colonoscopy Hx of prostatectomy for prostate cancer Social History Smoking Status: Unknown if ever smoked Second Hand Exposure: No; Do You Dip or Chew Tobacco: No; Hx Alcohol Use: Yes Alcohol type: beer Hx Substance Use: No Preferred Language: Swedish Communication Ability: Effective Pattern Setter Required: No Beliefs That Will Affect Care: None Current Living Situation: Spouse and Family Feels Safe at Home: Yes Assistive Devices: Contacts Review of Systems Review of Systems: All systems reviewed & are unremarkable except as noted in HPI & below Physical Exam Constitutional: WD/WN, vitals as above Eyes: PERRL, conjunctivae normal, anicteric sclerae ENMT: external ear and nose normal, oropharynx normal Neck: trachea midline, no thyromegaly Respiratory: Normal respiratory effort Cardiovascular: Rate/Rhythm: regular rate Gastrointestinal (Abdomen): Abdomen is firm but nondistended and nontender diffusely, incisions are healing well, no peritoneal signs Musculoskeletal: No concerning abnormalities Skin: no rashes, warm and dry Neurologic: No concerning abnormalities Psychiatric: A+Ox3, euthymic affect Results & Data Vital Signs (Past 12 Hours) Vital Signs Temp Pulse Pulse Resp BP BP Pulse Ox 07/13/25 20:00 66 19 151/90 H 97 07/13/25 19:58 36.7 C 63 18 166/97 H 99 07/13/25 19:01 152/94 H 07/13/25 19:01 152/94 H 07/13/25 19:00 69 20 98 07/13/25 18:51 81 16 07/13/25 18:45 150/92 H 07/13/25 18:45 150/92 H 07/13/25 18:45 150/92 H 07/13/25 18:45 150/92 H 07/13/25 18:45 150/92 H 07/13/25 18:45 79 25 H 97 07/13/25 18:42 70 28 H 97 07/13/25 18:30 160/99 H 07/13/25 18:30 160/99 H 07/13/25 18:30 160/99 H 07/13/25 18:30 160/99 H 07/13/25 18:30 160/99 H 07/13/25 18:30 74 18 97 07/13/25 18:21 74 25 H 97 07/13/25 18:15 158/92 H 07/13/25 18:15 158/92 H 07/13/25 18:15 158/92 H 07/13/25 18:15 158/92 H 07/13/25 18:15 158/92 H 07/13/25 18:15 72 14 97 07/13/25 18:15 73 18 158/92 H 98 07/13/25 18:12 76 23 99 07/13/25 18:00 150/97 H 07/13/25 18:00 150/97 H 07/13/25 18:00 150/97 H 07/13/25 18:00 150/97 H 07/13/25 18:00 72 17 150/97 H 97 07/13/25 17:45 71 16 165/105 H 99 07/13/25 17:30 77 16 156/94 H 98 07/13/25 17:15 73 22 152/101 H 98 07/13/25 17:12 76 16 142/98 H 97 07/13/25 16:51 80 22 150/99 H 99 07/13/25 16:26 36.8 C 73 16 121/85 93 07/13/25 16:25 70 O2 Del Method O2 Flow Rate 07/13/25 20:00 Nasal Cannula 2 07/13/25 19:58 Nasal Cannula 2 07/13/25 19:01 07/13/25 19:01 07/13/25 19:00 07/13/25 18:51 07/13/25 18:45 07/13/25 18:45 07/13/25 18:45 07/13/25 18:45 07/13/25 18:45 07/13/25 18:45 07/13/25 18:42 07/13/25 18:30 07/13/25 18:30 07/13/25 18:30 07/13/25 18:30 07/13/25 18:30 07/13/25 18:30 07/13/25 18:21 07/13/25 18:15 07/13/25 18:15 07/13/25 18:15 07/13/25 18:15 07/13/25 18:15 07/13/25 18:15 07/13/25 18:15 Nasal Cannula 2 07/13/25 18:12 07/13/25 18:00 07/13/25 18:00 07/13/25 18:00 07/13/25 18:00 07/13/25 18:00 Nasal Cannula 2 07/13/25 17:45 Nasal Cannula 2 07/13/25 17:30 Nasal Cannula 2 07/13/25 17:15 Nasal Cannula 2 07/13/25 17:12 Nasal Cannula 2 07/13/25 16:51 Nasal Cannula 2 07/13/25 16:26 Room Air 07/13/25 16:25 Laboratory Results Blood work is notable for elevated white blood cell count PG Care Time/CCT Total # of Minutes Spent Total Time Spent with Patient: Total time spent is greater than 50% in coordination of care (as documented) at patient's floor/unit and/or counseling patient: Coding Level of Care Code 50752 IN/OBS CONSULT LVL 3,45M Diagnoses Generalized abdominal pain R10.84 Abdominal location: generalized (1) Abdominal pain Abdominal location: generalized Qualified Code(s): R10.84 - Generalized abdominal pain
--- NOTE | 2025-07-13 20:34 | History & Physical Report ---
Date of Service July 13, 2025 Assessment & Plan (1) Colon perforation: (2) S/P inguinal hernia repair: (3) Hx of malignant neoplasm of prostate: Plan 64 yo male with pmhx of inguinal hernia (s/p repair 07/13/2025), BPH, GERD, prostate cancer (in 2013) who presents s/p inguinal hernia repair for severe abdominal pain 2/2 bowel perforation. #Bowel Perforation #S/p Inguinal Hernia Repair -patient with free air on imaging consistent with surgical report of colon perforation -exam reassuring at this time Plan: -start morphine 4mg IV q1hr prn for severe pain -start LR at 100cc/hr, NPO at this time -start zosyn for treatment of potential bowel perforation -PT/INR, ABO, type and screen ordered #GERD -continue omeprazole -hold aspirin -SCDs I spent a total of 80 minutes in direct patient care, including [id number] time with the patient and/or family, reviewing medical records, ordering and reviewing diagnostic tests, and coordinating care with other healthcare providers. This time includes: history taking, physical examination, medical decision making, counseling, ECG interpretation, imaging interpretation, lab interpretation, orders, and education, excluding time spent in the performance of separately billed services. History of Present Illness Chief Complaint: -abdominal pain post procedure Primary Care Provider: Lance Rodriguez, DO 64 yo male with pmhx of inguinal hernia (s/p repair 07/13/2025), BPH, GERD, prostate cancer (in 2013) who presents s/p inguinal hernia repair for severe abdominal pain. During procedure, surgical concern for nicked bowel, which was subsequently sutured by the surgeon and disclosed to family. Patient sent to ED for further workup for severe abdominal pain in post operative unit. In the ED, CT abdomen/pelvis revealing free air concerning for bowel perforation. Surgery consulted, recommended conservative management and no indication for emergent procedure at this time. Recommended medical admission. Patient seen and examined at bedside. Patient doing ok at this time, accompanied by and child. Patient states post op course today complicated by unbearable severe pain. Improved with morphine, did not get touched by dilaudid. Has some nausea as well. Described pain as sharp and constant in lower abdomen. Allergies Allergy/AdvReac Type Severity Reaction Status Date / Time No Known Drug Allergies Allergy Unknown NKDA Verified 06/24/22 06:51 Seasonal Allergies Allergy Mild Respiratory Uncoded 06/24/22 06:51 Home Medications Medication Instructions Recorded Confirmed Type omeprazole 20 mg capsule,delayed 20 mg PO UD PRN Heartburn 06/08/22 07/13/25 History release loratadine 10 mg tablet (Claritin) 10 mg PO UD PRN allergies 06/19/22 07/13/25 History aspirin 81 mg tablet,delayed 81 mg PO BID #60 tabs 06/24/22 07/13/25 Rx release montelukast 10 mg tablet 10 mg PO DAILY 07/13/25 07/13/25 History oxycodone-acetaminophen 5 mg-325 1 tab PO UD PRN pain 07/13/25 07/13/25 History mg tablet (Percocet) Past Med/Surg History Problem List (Updated 07/13/25 @ 20:30 by Kulwant Carmen MD) S/P inguinal hernia repair Colon perforation Abdominal pain Encounter for pre-operative examination Prostate cancer (Acute) "Intermediate Risk: Arjun 4 + 3, PSA 4.86, cT1c, group IIA" Postoperative edema (Acute) Tear of meniscus of left knee Medical History Hx of malignant neoplasm of prostate 2013 History of bradycardia "naturally slow heart rate" History of COVID-19 08/26, [facility] in [place], [place]; not hosp; "mild symptoms">resolved. Hx of seasonal allergies Hx of gastroesophageal reflux (GERD) Surgical History Hx of arthroscopy of right knee Hx of umbilical hernia repair Hx laparoscopic cholecystectomy History of esophagogastroduodenoscopy (EGD) Hx of colonoscopy Hx of prostatectomy for prostate cancer Social History Smoking Status: Unknown if ever smoked Second Hand Exposure: No; Do You Dip or Chew Tobacco: No; Hx Alcohol Use: Yes Alcohol type: beer Hx Substance Use: No Preferred Language: Occitan Communication Ability: Effective Christian Science Reader Required: No Beliefs That Will Affect Care: None Current Living Situation: Spouse and Family Feels Safe at Home: Yes Assistive Devices: Contacts Review of Systems Review of Systems: -negative unless listed above Physical Exam Physical Exam: Gen: A&O 3 NAD HEENT: NCAT, EOMI, not icteric. External ears normal. No rhinorrhea. Moist mucous membranes. Neck: Supple, full range of motion, no observable masses, No meningeal sign. Lungs: No Respiratory distress. CV: RRR, no edema. Abdomen: significantly tender RLQ without peritonitic signs, diffusely mildly tender abdomen MSK: post op dressings with one spot with dried blood Skin: No rashes, petechiae, lesions. Normal color per patient. Neuro: Normal Gait, Grossly intact. Psych: Appropriate for situation. Results & Data Results & Data Vital Signs (Past 12 Hours) Vital Signs Temp Pulse Pulse Resp BP BP Pulse Ox 07/13/25 20:14 68 07/13/25 20:00 66 19 151/90 H 97 07/13/25 19:58 36.7 C 63 18 166/97 H 99 07/13/25 19:01 152/94 H 07/13/25 19:01 152/94 H 07/13/25 19:00 69 20 98 07/13/25 18:51 81 16 07/13/25 18:45 150/92 H 07/13/25 18:45 150/92 H 07/13/25 18:45 150/92 H 07/13/25 18:45 150/92 H 07/13/25 18:45 150/92 H 07/13/25 18:45 79 25 H 97 07/13/25 18:42 70 28 H 97 07/13/25 18:30 160/99 H 07/13/25 18:30 160/99 H 07/13/25 18:30 160/99 H 07/13/25 18:30 160/99 H 07/13/25 18:30 160/99 H 07/13/25 18:30 74 18 97 07/13/25 18:21 74 25 H 97 07/13/25 18:15 158/92 H 07/13/25 18:15 158/92 H 07/13/25 18:15 158/92 H 07/13/25 18:15 158/92 H 07/13/25 18:15 158/92 H 07/13/25 18:15 72 14 97 07/13/25 18:15 73 18 158/92 H 98 07/13/25 18:12 76 23 99 07/13/25 18:00 150/97 H 07/13/25 18:00 150/97 H 07/13/25 18:00 150/97 H 07/13/25 18:00 150/97 H 07/13/25 18:00 72 17 150/97 H 97 07/13/25 17:45 71 16 165/105 H 99 07/13/25 17:30 77 16 156/94 H 98 07/13/25 17:15 73 22 152/101 H 98 07/13/25 17:12 76 16 142/98 H 97 07/13/25 16:51 80 22 150/99 H 99 07/13/25 16:26 36.8 C 73 16 121/85 93 07/13/25 16:25 70 O2 Del Method O2 Flow Rate 07/13/25 20:14 07/13/25 20:00 Nasal Cannula 2 07/13/25 19:58 Nasal Cannula 2 07/13/25 19:01 07/13/25 19:01 07/13/25 19:00 07/13/25 18:51 07/13/25 18:45 07/13/25 18:45 07/13/25 18:45 07/13/25 18:45 07/13/25 18:45 07/13/25 18:45 07/13/25 18:42 07/13/25 18:30 07/13/25 18:30 07/13/25 18:30 07/13/25 18:30 07/13/25 18:30 07/13/25 18:30 07/13/25 18:21 07/13/25 18:15 07/13/25 18:15 07/13/25 18:15 07/13/25 18:15 07/13/25 18:15 07/13/25 18:15 07/13/25 18:15 Nasal Cannula 2 07/13/25 18:12 07/13/25 18:00 07/13/25 18:00 07/13/25 18:00 07/13/25 18:00 07/13/25 18:00 Nasal Cannula 2 07/13/25 17:45 Nasal Cannula 2 07/13/25 17:30 Nasal Cannula 2 07/13/25 17:15 Nasal Cannula 2 07/13/25 17:12 Nasal Cannula 2 07/13/25 16:51 Nasal Cannula 2 07/13/25 16:26 Room Air 07/13/25 16:25 Laboratory Results -personally reviewed, leukocytosis of 15 likely reactive to procedure vs. colonic perforation, creatinine at baseline, calcium 7.9 replenished Medications Administered Lactated Ringer's (Lr) 1,000 mls @ 100 mls/hr IV .Q10H ANNAMARIE Stop: 07/14/25 16:00 Last Admin: 07/13/25 18:36 Dose: 100 mls/hr Documented By: SW Code Status & VTE Plan Code Status -full code VTE Prophylaxis Plan VTE Prophylaxis will be ordered: Yes
[2025-07-13] MEDS: MoRPHine SULFATE 4 MG/ML 1 ML CARP\\VIAL IV PRN (20:52)
[2025-07-13] MEDS ORDERED: POLYETHYLENE (MIRALAX) 17 GM PACK PO PRN (21:22)
[2025-07-13 22:01] LABS: INR 1.0 (0.9-1.1); Prothrombin Time 10.9 Seconds (9.0-12.0)
[2025-07-13] MEDS: PIPERACILLIN/TAZOBACTAM 4.5 GM/100 ML BAG IV SCH (22:39)
[2025-07-14 06:42] LABS: Hematocrit (blood only) 37.9 % (42.0-52.0); Hemoglobin 12.9 g/dl (14.0-18.0); Mean Corpuscular Hemoglobin 31.2 pg (25.0-34.0); Mean Corpuscular Volume 91.8 fL (80.0-100.0); Platelet Count 238 K/uL (130-400); RDW Standard Deviation 41.6 fL (36.4-46.3); Red Blood Count 4.13 M/uL (4.70-6.10); White Blood Count 17.61 K/ul (4.8-10.8)
[2025-07-14 07:05] LABS: Alanine Aminotransferase 6.0 U/L (7-52); Albumin Globulin Ratio 1.3 (0.9-2); Albumin Level 3.6 gm/dl (3.4-5.0); Alkaline Phosphatase 46.0 U/L (34-104); Anion Gap 8.0 (3-11); Bilirubin,Total 0.8 mg/dl (0.2-1.0); Blood Urea Nitrogen 16.0 mg/dl (6-23); Calcium 8.2 mg/dl (8.6-10.3); Carbon Dioxide 24.0 mmol/L (21-32); Chloride 104.0 mmol/L (98-107); Creatinine Clr Calc Pharmacy 81.6 ml/min; Globulin 2.7 gm/dl (2.5-4.0); Glucose 139.0 mg/dl (70-99(Fasting)); Potassium 3.8 mmol/L (3.5-5.1); Sodium 136.0 mmol/L (136-145); Total Protein 6.3 gm/dl (6.0-8.3)
[2025-07-14 07:12] LABS: INR 1.1 (0.9-1.1); Prothrombin Time 11.4 Seconds (9.0-12.0)
[2025-07-14] MEDS: ONDANSETRON INJ 2 MG/ML 2 ML VIAL IV PRN (07:38)
[2025-07-14] MEDS: MONTELUKAST SODIUM 10 MG TABLET PO SCH (08:46)
[2025-07-14] MEDS: ONDANSETRON INJ 2 MG/ML 2 ML VIAL IV ONE (10:23)
--- NOTE | 2025-07-14 10:36 | Hospitalist Progress Note ---
Date of Service July 14, 2025 Assessment & Plan (1) Colon perforation: (2) S/P inguinal hernia repair: (3) Hx of malignant neoplasm of prostate: Plan Patient had undergone laparoscopic repair of ventral hernia with mesh by Dr. Lind on July 13, 2025; had a trocar injury of the small bowel; no contamination per his report and proceeded with repair successfully with mesh. Patient presented to the ED with worsening abdominal pain #Bowel Perforation #S/p Inguinal Hernia Repair CT abdomen/pelvis on admission showed small amount of free intraperitoneal air concerning for bowel perforation, small amount of ascites, wall thickening of the jejunum concerning for infectious enteritis/inflammatory bowel disease. Leukocytosis present on admission BUN/creatinine within normal limits Plan; Discussed with surgery; patient has been ordered CT abdomen with oral contrast to further evaluate the bowel. Pain control with Toradol and morphine Continuing IV antibiotics Continue on IV fluids #GERD -continue omeprazole -hold aspirin -SCDs Time spent evaluating patient, direct bedside care, chart review, placing orders, interpretation of diagnostic studies, discussion with consultants, patient, and family members, as well as other required patient management activities is 50 minutes Please note the above document was generated using voice recognition software. It may contain grammatical, syntax or spelling errors. Any formal questions or concerns about the content, text or information contained within the body of this dictation should be directly addressed to the provider for clarification Admission and Anticipated Discharge Date Admission Date: July 13, 2025 Subjective Patient seen and examined at bedside. He reports abdominal discomfort and pain on movement. He was afebrile overnight. Review of Systems Review of Systems: All systems reviewed & are unremarkable except as noted in Subjective Physical Exam Physical Exam: Gen: A&O 3 NAD HEENT: NCAT, EOMI, not icteric. External ears normal. No rhinorrhea. Moist mucous membranes. Neck: Supple, full range of motion, no observable masses, No meningeal sign. Lungs: No Respiratory distress. CV: RRR, no edema. Abdomen: Soft, tenderness present. Skin: No rashes, petechiae, lesions. Normal color per patient. Neuro: Normal Gait, Grossly intact. Psych: Appropriate for situation. Results & Data Results & Data Vital Signs (Past 12 Hours) Vital Signs Temp Pulse Resp BP Pulse Ox O2 Del Method O2 Flow Rate 07/14/25 08:10 36.9 C 68 18 116/66 96 Room Air 11/08/25 07:30 Nasal Cannula 3
--- NOTE | 2025-07-14 10:50 | Surgery Progress Note ---
<Statement entered by Jin Botello MD - 07/14/25 13:57> I saw and examined the patient and I agree with the assessment and plan of care Date of Service July 14, 2025 Assessment & Plan (1) Abdominal pain: Plan: Patient is POD #1 ventral hernia repair by Dr. Lind as outpatient at [facility]- intraoperatively, trocar injury of small bowel occurred, which was immediately repaired primarily. Patient reports continued abdominal pain, but says that he might be a bit more improved today. Reports nausea with movement. He is tolerating the occasional sip of water. WBC increased to 17.61 today from 15.00 yesterday. He is currently on IV Zosyn. Will order CT scan of abd/pelvis with PO contrast only today. Recommend Toradol for pain management. Patient seen and examined with Dr. Botello. 1:45PM- Patient and his updated on CT scan results from earlier today- IMPRESSION: 1. Small amount of pneumoperitoneum, decreased since CT of July 13, 2025. This could be related to a perforated viscus or postsurgical. Interval decrease in gas within the abdominal wall. 2. Interval development of small bowel dilatation. This favors an ileus. A partial small bowel obstruction could appear similar but is considered less likely. Associated mesenteric edema and small amount of ascites. Suspected trace blood products within the pelvis. No large hematoma. 3. Increase in size of small bilateral pleural effusions. Increase in associated subpleural opacities which favor atelectasis. Pneumonia or aspiration pneumonitis are within the differential but considered less likely. Art was instructed to take some good deep breaths for us, incentive spirometer was ordered. He is aware that CXR may be ordered later tonight. We also discussed importance of getting up and getting out of bed. He will continue to wear his abdominal binder. He reports that pain is improved, still reports some nausea with movement. Admission and Anticipated Discharge Date Admission Date: July 13, 2025 Subjective Patient resting in bed, reports some possible improvement in abdominal pain. He does continue to remain tender especially with movement. No acute events overnight. Physical Exam Constitutional: WD/WN, vitals as above Eyes: PERRL, conjunctivae normal, anicteric sclerae ENMT: external ear and nose normal, oropharynx normal Neck: trachea midline, no thyromegaly Respiratory: Normal respiratory effort Cardiovascular: Rate/Rhythm: regular rate Gastrointestinal (Abdomen): Abdomen remains somewhat firm (softer than yesterday) but nondistended and nontender diffusely, incisions are healing well, no peritoneal signs Musculoskeletal: No concerning abnormalities Skin: no rashes, warm and dry Neurologic: No concerning abnormalities Psychiatric: A+Ox3, euthymic affect Results & Data Vital Signs (Past 12 Hours) Vital Signs Temp Pulse Resp BP Pulse Ox O2 Del Method O2 Flow Rate 07/14/25 08:10 36.9 C 68 18 116/66 96 Room Air 07/14/25 07:30 Nasal Cannula 3 PG Care Time/CCT Total # of Minutes Spent Total Time Spent with Patient: Total time spent is greater than 50% in coordination of care (as documented) at patient's floor/unit and/or counseling patient: Coding Level of Care Code 59544 SUB INP/OBS CARE 09/30MIN Diagnoses Generalized abdominal pain R10.84 Abdominal location: generalized (1) Abdominal pain Abdominal location: generalized Qualified Code(s): R10.84 - Generalized abdominal pain
[2025-07-14] MEDS: KETOROLAC TROMETHAMINE 15 MG/ML VIAL IV ONE (11:58)
--- NOTE | 2025-07-14 12:01 | CT Scan Report ---
CT OF THE ABDOMEN AND PELVIS WITH ORAL CONTRAST CLINICAL HISTORY: s/p hernia repair with trocar injury to small bowel. COMPARISON STUDY: CT of the abdomen and pelvis July 13, 2025. TECHNIQUE: Axial images of the abdomen and pelvis were obtained without IV contrast. Oral contrast wa s administered. A dose lowering technique was utilized adhering to the principles of ALARA. FINDINGS: Small bilateral pleural effusions and associated bibasilar opacities have increased since C T of July 13, 2025. There is oral contrast within the distal esophagus. The stomach is mildly dist ended. There is contrast within the stomach. A small amount of pneumoperitoneum has decreased since C T of July 13, 2025. Gas within the anterior abdominal wall has also mildly decreased. Moderate sma ll bowel dilatation has developed. No well-defined transition point is identified. Associated mesente jameson edema is present. Evaluation is suboptimal given lack of IV contrast. Oral contrast reaches the m id jejunum. There are postoperative finding within the anterior abdominal wall. Small amount of fluid within the abdomen and pelvis is again noted. Minimal layering hyperdense material within the pelvis is present. This suggests trace blood products. There is colonic diverticulosis without evidence for acute diverticulitis. There are no urinary calculi. There is no hydronephrosis. Unenhanced images of the liver, spleen, adrenal glands, kidneys and pancreas are unremarkable. There is no biliary ductal dilatation status post cholecystectomy. IMPRESSION: 1. Small amount of pneumoperitoneum, decreased since CT of July 13, 2025. This could be related to a perforated viscus or postsurgical. Interval decrease in gas within the abdominal wall. 2. Interval development of small bowel dilatation. This favors an ileus. A partial small bowel obstru ction could appear similar but is considered less likely. Associated mesenteric edema and small amoun t of ascites. Suspected trace blood products within the pelvis. No large hematoma. 3. Increase in size of small bilateral pleural effusions. Increase in associated subpleural opacities which favor atelectasis. Pneumonia or aspiration pneumonitis are within the differential but conside red less likely. ACT 112: Negative or not required by law. Electronically signed by: Artur Torres M.D. 07/14/2025 11:58 AM
[2025-07-14] MEDS: ALUMINUM/MAGNESIUM/SIMETH (MAALOX MAX) 30 ML UDC PO PRN (19:48)
[2025-07-14] MEDS: LACTATED RINGER'S 1,000 ML IV SCH (19:51)
[2025-07-14] MEDS: KETOROLAC TROMETHAMINE 15 MG/ML VIAL IV PRN (21:30)
[2025-07-15 07:10] LABS: Hematocrit (blood only) 37.9 % (42.0-52.0); Hemoglobin 13.1 g/dl (14.0-18.0); Immature Granulocytes # (auto) 0.06 K/uL (0.01-0.20); Immature Granulocytes % (auto) 0.4 %; Mean Corpuscular Hemoglobin 31.9 pg (25.0-34.0); Mean Corpuscular Volume 92.2 fL (80.0-100.0); Platelet Count 232 K/uL (130-400); RDW Standard Deviation 41.5 fL (36.4-46.3); Red Blood Count 4.11 M/uL (4.70-6.10); White Blood Count 14.44 K/ul (4.8-10.8)
[2025-07-15 07:31] LABS: Alanine Aminotransferase 5.0 U/L (7-52); Albumin Globulin Ratio 1.2 (0.9-2); Albumin Level 3.4 gm/dl (3.4-5.0); Alkaline Phosphatase 46.0 U/L (34-104); Anion Gap 7.0 (3-11); Bilirubin,Total 0.9 mg/dl (0.2-1.0); Blood Urea Nitrogen 17.0 mg/dl (6-23); Calcium 8.4 mg/dl (8.6-10.3); Carbon Dioxide 27.0 mmol/L (21-32); Chloride 100.0 mmol/L (98-107); Creatinine Clr Calc Pharmacy 75.0 ml/min; Globulin 2.8 gm/dl (2.5-4.0); Glucose 117.0 mg/dl (70-99(Fasting)); Potassium 3.7 mmol/L (3.5-5.1); Sodium 134.0 mmol/L (136-145); Total Protein 6.2 gm/dl (6.0-8.3)
[2025-07-15] MEDS: ACETAMINOPHEN 325 MG TAB PO PRN (07:35)
--- NOTE | 2025-07-15 08:46 | XRay Report ---
KUB CLINICAL HISTORY: eval bowel/gas pattern, passage of contrast COMPARISON STUDY: CT of the abdomen and pelvis July 14, 2025. FINDINGS: Incidental note is made of small bilateral pleural effusions and associated bibasilar opaci ties as shown on CT of July 14, 2025. Multiple loops of moderately dilated small bowel measure up to 5.8 cm in caliber. Small bowel dilatation has increased since CT of July 14, 2025. Oral contras t from that exam is now within the ascending colon. Cholecystectomy clips are incidentally noted. Sma ll amount of abdominal gas is similar to prior CT and likely postsurgical. IMPRESSION: Increase in moderate small bowel dilatation since CT of July 14, 2025. The findings fa vor an ileus although a partial small bowel obstruction could appear similar. Oral contrast that exam is now within the ascending colon. ACT 112: Negative or not required by law. Electronically signed by: Artur Torres M.D. 07/15/2025 8:45 AM
[2025-07-15] MEDS ORDERED: ACETAMINOPHEN 1,000 MG/100 ML VIAL IV PRN (09:28)
--- NOTE | 2025-07-15 09:31 | Hospitalist Progress Note ---
Date of Service July 15, 2025 Assessment & Plan (1) Colon perforation: (2) S/P inguinal hernia repair: (3) Hx of malignant neoplasm of prostate: Plan Patient had undergone laparoscopic repair of ventral hernia with mesh by Dr. Lind on July 13, 2025; had a trocar injury of the small bowel; no contamination per his report and proceeded with repair successfully with mesh. Patient presented to the ED with worsening abdominal pain #Bowel Perforation #S/p Inguinal Hernia Repair Ileus CT abdomen/pelvis on admission showed small amount of free intraperitoneal air concerning for bowel perforation, small amount of ascites, wall thickening of the jejunum concerning for infectious enteritis/inflammatory bowel disease. Leukocytosis present on admission; improving BUN/creatinine within normal limits Repeat CT abdomen/pelvis with oral contrast done on 07/14 shows small amount of pneumoperitoneum, decreased from previous day. Interval development of small bowel dilation favoring ileus. Increasing size of small bilateral pleural effusion, atelectasis. KUB from 07/15increase in moderately small bowel dilation; favors ileus. Oral contrast is now within ascending colon Discussed with patient regarding encouraging ambulation. Avoid narcotics as much as possible; will place him on Tylenol and Toradol as needed Continue IV fluids Await return of bowel function; trial of sips of water if bowel function improv es #GERD - on iv Protonix DVT prophylaxis SCDs Full code Time spent evaluating patient, direct bedside care, chart review, placing orders, interpretation of diagnostic studies, discussion with consultants, patient, and family members, as well as other required patient management activities is 50 minutes Please note the above document was generated using voice recognition software. It may contain grammatical, syntax or spelling errors. Any formal questions or concerns about the content, text or information contained within the body of this dictation should be directly addressed to the provider for clarification Admission and Anticipated Discharge Date Admission Date: July 13, 2025 Subjective Patient seen and examined at bedside. He is lying on the bed comfortably. He reports that he is feeling slightly better compared to previous day. He still has not passed flatus. No fever or chills overnight. Vital sign appears stable Review of Systems Review of Systems: All systems reviewed & are unremarkable except as noted in Subjective Physical Exam Physical Exam: Gen: A&O 3 NAD HEENT: NCAT, EOMI, not icteric. External ears normal. No rhinorrhea. Moist mucous membranes. Neck: Supple, full range of motion, no observable masses, No meningeal sign. Lungs: No Respiratory distress. CV: RRR, no edema. Abdomen: Soft, slightly distended. Tenderness present Skin: No rashes, petechiae, lesions. Normal color per patient. Neuro: Normal Gait, Grossly intact. Psych: Appropriate for situation. Results & Data Results & Data Vital Signs (Past 12 Hours) Vital Signs Temp Pulse Resp BP Pulse Ox O2 Del Method O2 Flow Rate 07/15/25 07:07 36.6 C 59 L 18 133/84 95 Nasal Cannula 1 07/14/25 23:05 37.0 C 76 14 120/71 94 Nasal Cannula 1
[2025-07-15] MEDS: PANTOprazole 40 MG/10 ML SYR IV SCH (10:33)
[2025-07-15] MEDS: METOCLOPRAMIDE HCL INJ 5 MG/ML 2 ML VIAL IV STA (10:34)
--- NOTE | 2025-07-15 10:49 | Surgery Progress Note ---
<Statement entered by Jin Botello MD - 07/15/25 15:48> I independently saw the patient, and I agree with the assessment and plan of care. Date of Service July 15, 2025 Assessment & Plan (1) Accidental injury of intestine during surgical procedure: Plan: Patient is s/p ventral hernia repair with dr. gonzales last wednesday, intraop complicated by a trochar injury of small bowel repaired immediately here w/ post op abdominal pain; CT shows small amount of free air, likely post surgical today wbc 14.4, Hbg 13. vitals are stable. on IV zosyn he feels a little bit better than yesterday KUB obtained today shows some contrast into the ascending colon, illustrating possible ileus vs. partial SBO Will allow patient to trial some clears today and see how he fairs; if any issues back down to NPO encourage OOB/ambulation, pulmonary toilet Admission and Anticipated Discharge Date Admission Date: July 13, 2025 Subjective Patient feeling better, but reports not 100% yet. No much bowel function yet. Physical Exam Physical Exam: awake/alert, no distress Gastrointestinal (Abdomen): Inspection/Auscultation: + abdomen distended (improving from yesterday) and + abdominal surgical incision (c/d/i) Percussion/Palpation: + abdomen tender (improving) and abdomen soft wearing abdominal binder Results & Data Vital Signs (Past 12 Hours) Vital Signs Temp Pulse Resp BP Pulse Ox O2 Del Method O2 Flow Rate 07/15/25 07:07 97.9 F 59 L 18 133/84 95 Nasal Cannula 1 07/14/25 23:05 98.6 F 76 14 120/71 94 Nasal Cannula 1 PG Care Time/CCT Total # of Minutes Spent Total Time Spent with Patient: Total time spent is greater than 50% in coordination of care (as documented) at patient's floor/unit and/or counseling patient: Coding Level of Care Code 16206 SUB INP/OBS CARE 09/30MIN Diagnoses Accidental injury of intestine during surgical procedure K91.81
[2025-07-16 00:40] LABS: Appearance Urine Clear (Clear); Bacteria Urine Automated None Seen (None Seen); Cast Urine Automated 0-2 /lpf (0-2); Epithelial Cell Urine Auto 0-2 /hpf (0-2); Glucose Urine UA Negative (Negative); RBC Urine Automated 0-2 /hpf (0-2); WBC Urine Automated 0-5 /hpf (0-5)
--- NOTE | 2025-07-16 08:48 | Surgery Progress Note ---
Date of Service July 16, 2025 Assessment & Plan (1) S/P repair of ventral hernia: (2) Accidental injury of intestine during surgical procedure: (3) Abdominal pain: Plan: POD # 3 s/p laparoscopic ventral hernia repair with mesh with injury to small intestine and oversew avss postop pain moderate 5/10 post op ileus, no obstruction, oral contrast in cecum +bowel function Plan: Continue pain management, scheduled IV tylenol with Toradol Continue ambulation to increase GI motility continue abdominal binder antiemetics as needed OOB to chair as much as possbile Continue IV abx for now continue clear liquids this am Discussed with Dr. Lind who has seen patient separately. agrees with above plan. Admission and Anticipated Discharge Date Admission Date: July 13, 2025 Subjective feeling better than yesterday pain about 5/10, improving, Toradol helps very nauseous yesterday, improved today tolerated clear liquids yesterday still feeling bloated having bowel movements an passing gas Review of Systems Review of Systems: All systems reviewed & are unremarkable except as noted in HPI & below Physical Exam Constitutional: WD/WN, vitals as above cooperative and comfortable; no acute distress, not ill appearing, not in distress and not diaphoretic Respiratory: normal respiratory effort; no respiratory distress, no labored br eathing and no retractions Gastrointestinal (Abdomen): Inspection/Auscultation: + abdomen distended (mild) and + abdominal surgical incision (c/d/i with dermabond) Percussion/Palpation: + abdomen tender (mid abdomen and left mid abdomen at incision site) and abdomen soft; no guarding, abdomen not rigid and abdomen not firm Skin: no rashes, warm and dry Psychiatric: Orientation: alert and oriented x 3 Results & Data Vital Signs (Past 12 Hours) Vital Signs Temp Pulse Resp BP Pulse Ox O2 Del Method 07/16/25 07:20 37 C 73 18 145/84 H 97 Room Air 07/16/25 06:27 37.0 C 07/16/25 02:54 37.0 C 07/15/25 22:04 37.3 C 07/15/25 21:47 37.9 C H 77 18 133/77 94 Room Air Laboratory Results 07/16/25 07/16/25 Range/Units 07:42 00:05 WBC Pending RBC Pending Hgb Pending Hct Pending MCV Pending MCH Pending MCHC Pending Plt Count Pending Sodium Pending Potassium Pending Chloride Pending Carbon Dioxide Pending Anion Gap Pending BUN Pending Creatinine Pending Est Cr Clr Drug Dosing Pending eGFR Pending BUN/Creatinine Ratio Pending Glucose Pending Calcium Pending Total Bilirubin Pending AST Pending ALT Pending Alkaline Phosphatase Pending Total Protein Pending Albumin Pending Globulin Pending Albumin/Globulin Ratio Pending Urine Color Yellow Urine Appearance Clear (Clear) Urine pH 7.0 (4.5-7.5) Ur Specific [place] 1.020 (1.000-1.030) Urine Protein 1+ H (Negative) Urine Glucose (UA) Negative (Negative) Urine Ketones Negative (Negative) Urine Blood Negative (Negative) Urine Nitrite Negative (Negative) Urine Bilirubin Negative (Negative) Urine Urobilinogen Negative (Negative) Ur Leukocyte Esterase Negative (Negative) Urine WBC (Auto) 0-5 (0-5) /hpf Urine RBC (Auto) 0-2 (0-2) /hpf U Hyaline Cast (Auto) 0-2 (0-2) /lpf U Epithel Cells (Auto) 0-2 (0-2) /hpf Urine Bacteria (Auto) None Seen (None Seen) Urine Comment (3) Abdominal pain Abdominal location: generalized Qualified Code(s): R10.84 - Generalized abdominal pain
[2025-07-16 09:06] LABS: Hematocrit (blood only) 37.8 % (42.0-52.0); Hemoglobin 12.9 g/dl (14.0-18.0); Mean Corpuscular Hemoglobin 31.3 pg (25.0-34.0); Mean Corpuscular Volume 91.7 fL (80.0-100.0); Platelet Count 248 K/uL (130-400); RDW Standard Deviation 41.1 fL (36.4-46.3); Red Blood Count 4.12 M/uL (4.70-6.10); White Blood Count 11.97 K/ul (4.8-10.8)
[2025-07-16 09:34] LABS: Alanine Aminotransferase 4.0 U/L (7-52); Albumin Globulin Ratio 1.0 (0.9-2); Albumin Level 3.2 gm/dl (3.4-5.0); Alkaline Phosphatase 46.0 U/L (34-104); Anion Gap 6.0 (3-11); Bilirubin,Total 0.9 mg/dl (0.2-1.0); Blood Urea Nitrogen 13.0 mg/dl (6-23); Calcium 8.3 mg/dl (8.6-10.3); Carbon Dioxide 27.0 mmol/L (21-32); Chloride 102.0 mmol/L (98-107); Creatinine Clr Calc Pharmacy 83.4 ml/min; Globulin 3.1 gm/dl (2.5-4.0); Glucose 116.0 mg/dl (70-99(Fasting)); Potassium 3.5 mmol/L (3.5-5.1); Sodium 135.0 mmol/L (136-145); Total Protein 6.3 gm/dl (6.0-8.3)
[2025-07-16] MEDS: ACETAMINOPHEN 1,000 MG/100 ML VIAL IV SCH (10:29)
--- NOTE | 2025-07-16 10:29 | Hospitalist Progress Note ---
Date of Service July 16, 2025 Assessment & Plan (1) Colon perforation: (2) S/P inguinal hernia repair: (3) Hx of malignant neoplasm of prostate: Plan Patient had undergone laparoscopic repair of ventral hernia with mesh by Dr. Lind on July 13, 2025; had a trocar injury of the small bowel; no contamination per his report and proceeded with repair successfully with mesh. Patient presented to the ED with worsening abdominal pain #Bowel Perforation #S/p Inguinal Hernia Repair Ileus CT abdomen/pelvis on admission showed small amount of free intraperitoneal air concerning for bowel perforation, small amount of ascites, wall thickening of the jejunum concerning for infectious enteritis/inflammatory bowel disease. Leukocytosis present on admission; improving BUN/creatinine within normal limits Repeat CT abdomen/pelvis with oral contrast done on 07/14 shows small amount of pneumoperitoneum, decreased from previous day. Interval development of small bowel dilation favoring ileus. Increasing size of small bilateral pleural effusion, atelectasis. KUB from 07/15increase in moderately small bowel dilation; favors ileus. Oral contrast is now within ascending colon Diet switched over to full liquid diet; Encourage ambulation Continue IV antibiotic Continue pain control with Tylenol and Toradol #GERD - on iv Protonix DVT prophylaxis SCDs Full code Time spent evaluating patient, direct bedside care, chart review, placing orders, interpretation of diagnostic studies, discussion with consultants, patient, and family members, as well as other required patient management activities is 50 minutes Please note the above document was generated using voice recognition software. It may contain grammatical, syntax or spelling errors. Any formal questions or concerns about the content, text or information contained within the body of this dictation should be directly addressed to the provider for clarification Admission and Anticipated Discharge Date Admission Date: July 13, 2025 Subjective Patient seen and examined at bedside. He reports that he is feeling better compared to previous day. He had multiple small bowel movements as well Had elevated temperature last night. Review of Systems Review of Systems: All systems reviewed & are unremarkable except as noted in Subjective Physical Exam Physical Exam: Gen: A&O 3 NAD HEENT: NCAT, EOMI, not icteric. External ears normal. No rhinorrhea. Moist mucous membranes. Neck: Supple, full range of motion, no observable masses, No meningeal sign. Lungs: No Respiratory distress. CV: RRR, no edema. Abdomen: Soft, slightly distended. Tenderness present; improved compared to yesterdays Skin: No rashes, petechiae, lesions. Normal color per patient. Neuro: Normal Gait, Grossly intact. Psych: Appropriate for situation. Results & Data Results & Data Vital Signs (Past 12 Hours) Vital Signs Temp Pulse Resp BP Pulse Ox O2 Del Method 07/16/25 07:20 37 C 73 18 145/84 H 97 Room Air 07/16/25 06:27 37.0 C 07/16/25 02:54 37.0 C
--- NOTE | 2025-07-17 09:06 | Surgery Progress Note ---
Date of Service July 17, 2025 Assessment & Plan (1) S/P repair of ventral hernia: (2) Accidental injury of intestine during surgical procedure: (3) Abdominal pain: Plan: POD # 4 s/p laparoscopic ventral hernia repair with mesh with injury to small intestine and oversew avss postop pain moderate, stable post op ileus, no obstruction, oral contrast in cecum +bowel function Plan: Continue pain management, scheduled IV Tylenol with Toradol will start oral Oxycodone today Continue ambulation to increase GI motility continue abdominal binder antiemetics as needed OOB to chair as much as possbile Continue IV abx for now, will likely need antibiotics on discharge for prophylaxis due to small bowel injury and mesh placement low fiber diet Discussed with Dr. Crum who agrees with above plan. Admission and Anticipated Discharge Date Admission Date: July 13, 2025 Subjective feeling better, still having pain but controlled tolerating diet + bowel movements and passing gas abdomen still feels bloated but not worse no nausea no fevers or chills Review of Systems Review of Systems: All systems reviewed & are unremarkable except as noted in HPI & below Physical Exam Constitutional: WD/WN, vitals as above cooperative and comfortable; no acute distress and not ill appearing Respiratory: normal respiratory effort Gastrointestinal (Abdomen): Inspection/Auscultation: + abdomen distended (mild), + abdominal surgical incision (c/d/i with dermabond) and + hypoactive bowel sounds; + abnormal bowel sounds Percussion/Palpation: + abdomen tender (mid abdomen) and abdomen soft; no guarding, abdomen not rigid and abdomen not firm Skin: no rashes, warm and dry Psychiatric: A+Ox3, euthymic affect Results & Data Vital Signs (Past 12 Hours) Vital Signs Temp Pulse Resp BP Pulse Ox O2 Del Method 07/17/25 07:49 37.0 C 65 17 141/83 H 95 Room Air 07/16/25 22:18 37.1 C 67 18 146/86 H 94 Room Air 07/16/25 21:15 Room Air Laboratory Results 07/17/25 Range/Units 09:40 WBC 9.59 (4.8-10.8) K/ul RBC 4.17 L (4.70-6.10) M/uL Hgb 13.1 L (14.0-18.0) g/dl Hct 37.4 L (42.0-52.0) % MCV 89.7 (80.0-100.0) fL MCH 31.4 (25.0-34.0) pg MCHC 35.0 (32.0-36.0) g/dL RDW Std Deviation 39.5 (36.4-46.3) fL RDW Coeff of [place] 12.0 (11.5-14.5) % Plt Count 294 (130-400) K/uL MPV 9.4 (9.4-12.4) fL Immature Gran % (Auto) 0.4 % Neut % (Auto) 75.1 % Lymph % (Auto) 13.0 % [place] % (Auto) 7.8 % Eos % (Auto) 3.1 % Baso % (Auto) 0.6 % Neut # (Auto) 7.19 H (1.40-6.50) K/uL Lymph # (Auto) 1.25 (1.20-3.40) K/uL [place] # (Auto) 0.75 H (0.11-0.59) K/uL Eos # (Auto) 0.30 (0.00-0.50) K/uL Baso # (Auto) 0.06 (0.00-0.20) K/uL Immature Gran # (Auto) 0.04 (0.01-0.20) K/uL Sodium 135 L (136-145) mmol/L Potassium 3.5 (3.5-5.1) mmol/L Chloride 104 (98-107) mmol/L Carbon Dioxide 23 (21-32) mmol/L Anion Gap 8 (3-11) BUN 9 (6-23) mg/dl Creatinine 0.88 (0.6-1.4) mg/dl Est Cr Clr Drug Dosing 85.3 ml/min eGFR 94.84 BUN/Creatinine Ratio 10.2 (10-20) Glucose 124 H (70-99(Fasting)) mg/dl Calcium 8.4 L (8.6-10.3) mg/dl (3) Abdominal pain Abdominal location: generalized Qualified Code(s): R10.84 - Generalized abdominal pain
[2025-07-17 10:02] LABS: Hematocrit (blood only) 37.4 % (42.0-52.0); Hemoglobin 13.1 g/dl (14.0-18.0); Immature Granulocytes # (auto) 0.04 K/uL (0.01-0.20); Immature Granulocytes % (auto) 0.4 %; Mean Corpuscular Hemoglobin 31.4 pg (25.0-34.0); Mean Corpuscular Volume 89.7 fL (80.0-100.0); Platelet Count 294 K/uL (130-400); RDW Standard Deviation 39.5 fL (36.4-46.3); Red Blood Count 4.17 M/uL (4.70-6.10); White Blood Count 9.59 K/ul (4.8-10.8)
[2025-07-17 10:13] LABS: Anion Gap 8.0 (3-11); Blood Urea Nitrogen 9.0 mg/dl (6-23); Calcium 8.4 mg/dl (8.6-10.3); Carbon Dioxide 23.0 mmol/L (21-32); Chloride 104.0 mmol/L (98-107); Creatinine Clr Calc Pharmacy 85.3 ml/min; Glucose 124.0 mg/dl (70-99(Fasting)); Potassium 3.5 mmol/L (3.5-5.1); Sodium 135.0 mmol/L (136-145)
--- NOTE | 2025-07-17 10:47 | Hospitalist Progress Note ---
Date of Service July 17, 2025 Assessment & Plan (1) Colon perforation: (2) S/P inguinal hernia repair: (3) Hx of malignant neoplasm of prostate: Plan Patient had undergone laparoscopic repair of ventral hernia with mesh by Dr. Lind on July 13, 2025; had a trocar injury of the small bowel; no contamination per his report and proceeded with repair successfully with mesh. Patient presented to the ED with worsening abdominal pain #Bowel Perforation #S/p Inguinal Hernia Repair Ileus CT abdomen/pelvis on admission showed small amount of free intraperitoneal air concerning for bowel perforation, small amount of ascites, wall thickening of the jejunum concerning for infectious enteritis/inflammatory bowel disease. Leukocytosis present on admission; improving BUN/creatinine within normal limits Repeat CT abdomen/pelvis with oral contrast done on 07/14 shows small amount of pneumoperitoneum, decreased from previous day. Interval development of small bowel dilation favoring ileus. Increasing size of small bilateral pleural effusion, atelectasis. Plan; Diet changed to low fiber. Continue to encourage ambulation Pain control with Toradol, oxycodone Possible DC in a.m. if he continues to do well incentive spirometry #GERD - on iv Protonix DVT prophylaxis SCDs Full code Time spent evaluating patient, direct bedside care, chart review, placing orders, interpretation of diagnostic studies, discussion with consultants, patient, and family members, as well as other required patient management activities is 50 minutes Please note the above document was generated using voice recognition software. It may contain grammatical, syntax or spelling errors. Any formal questions or concerns about the content, text or information contained within the body of this dictation should be directly addressed to the provider for clarification Admission and Anticipated Discharge Date Admission Date: July 13, 2025 Subjective Patient seen and examined at bedside. He reports that he is doing better over all. He is tolerating diet having regular bowel movements. Denies any abdominal pain or discomfort. Review of Systems Review of Systems: All systems reviewed & are unremarkable except as noted in Subjective Physical Exam Physical Exam: Gen: A&O 3 NAD HEENT: NCAT, EOMI, not icteric. External ears normal. No rhinorrhea. Moist mucous membranes. Neck: Supple, full range of motion, no observable masses, No meningeal sign. Lungs: No Respiratory distress. CV: RRR, no edema. Abdomen: Soft, slightly distended. Tenderness present; improved compared to yesterdays Skin: No rashes, petechiae, lesions. Normal color per patient. Neuro: Normal Gait, Grossly intact. Psych: Appropriate for situation. Results & Data Results & Data Vital Signs (Past 12 Hours) Vital Signs Temp Pulse Resp BP Pulse Ox O2 Del Method 07/17/25 07:49 37.0 C 65 17 141/83 H 95 Room Air
[2025-07-17 22:49] VITALS: RESP 16; O2SAT 94
[2025-07-18 07:43] VITALS: BP 137/88; PULSE 56; TEMP 97.9
[2025-07-18 08:14] LABS: Hematocrit (blood only) 37.8 % (42.0-52.0); Hemoglobin 12.9 g/dL (14.0-18.0); Immature Granulocytes # (auto) 0.08 K/uL (0.01-0.20); Immature Granulocytes % (auto) 0.7 %; Mean Corpuscular Hemoglobin 30.9 pg (25.0-34.0); Mean Corpuscular Volume 90.4 fL (80.0-100.0); Platelet Count 312 K/uL (130-400); RDW Standard Deviation 39.8 fL (36.4-46.3); Red Blood Count 4.18 M/uL (4.70-6.10); White Blood Count 10.71 K/ul (4.8-10.8)
[2025-07-18 08:29] LABS: Anion Gap 7.0 (3-11); Blood Urea Nitrogen 12.0 mg/dl (6-23); Calcium 8.5 mg/dl (8.6-10.3); Carbon Dioxide 23.0 mmol/L (21-32); Chloride 104.0 mmol/L (98-107); Creatinine Clr Calc Pharmacy 80.7 ml/min; Glucose 106.0 mg/dl (70-99(Fasting)); Potassium 3.6 mmol/L (3.5-5.1); Sodium 134.0 mmol/L (136-145)
--- NOTE | 2025-07-18 13:43 | Surgery Progress Note ---
Date of Service July 18, 2025 Assessment & Plan (1) S/P repair of ventral hernia: (2) Accidental injury of intestine during surgical procedure: (3) Abdominal pain: Plan: POD # 5 s/p laparoscopic ventral hernia repair with mesh with injury to small intestine and oversew avss postop pain improving, controlled with oral Oxycodone today post op ileus, no obstruction, oral contrast in cecum on KUB 07/15/25 +bowel function, loose water stools, c diff ordered Plan: Continue pain management, continue oral Oxycodone prn Continue ambulation to increase GI motility continue abdominal binder antiemetics as needed await stools studies okay from surgical standpoint for discharge if c. diff negative. Discussed with Dr. Crum who agrees with above plan. Admission and Anticipated Discharge Date Admission Date: July 13, 2025 Subjective feeling better pain controlled with Oxycodone tolerating diet so far without abdominal pain still with loose stools, c. diff testing ordered, unable to provide sample yet no chest pain or shortness of breath Review of Systems Review of Systems: All systems reviewed & are unremarkable except as noted in HPI & below Physical Exam Constitutional: WD/WN, vitals as above cooperative and comfortable; no acute distress and not ill appearing Respiratory: normal respiratory effort; no respiratory distress and no labored breathing Gastrointestinal (Abdomen): Inspection/Auscultation: + abdomen distended (mild) and + abdominal surgical incision (c/d/i with dermabond) Percussion/Palpation: + abdomen tender (central abdomen site of mesh tacks) and abdomen soft; no guarding, abdomen not rigid and abdomen not firm Skin: no rashes, warm and dry Psychiatric: A+Ox3, euthymic affect Results & Data Vital Signs (Past 12 Hours) Vital Signs Temp Pulse Resp BP Pulse Ox O2 Del Method 07/18/25 07:42 36.6 C 56 L 16 137/88 94 Room Air (3) Abdominal pain Abdominal location: generalized Qualified Code(s): R10.84 - Generalized abdominal pain
[2025-07-18 14:35] LABS: Cdiff Toxin B Gene (2yr or >) Negative Cdiff Gene (Neg)
--- NOTE | 2025-07-18 14:58 | Discharge Summary ---
Discharge Summary Date of Service July 18, 2025 Principal Dx & Hospital Course #1 = Principal Diagnosis (1) Colon perforation: (2) S/P inguinal hernia repair: (3) Hx of malignant neoplasm of prostate: Plan Patient had undergone laparoscopic repair of ventral hernia with mesh by Dr. Lind on July 13, 2025; had a trocar injury of the small bowel; no contamination per his report and proceeded with repair successfully with mesh. Patient presented to the ED with worsening abdominal pain #Bowel Perforation #S/p Inguinal Hernia Repair Ileus CT abdomen/pelvis on admission showed small amount of free intraperitoneal air concerning for bowel perforation, small amount of ascites, wall thickening of the jejunum concerning for infectious enteritis/inflammatory bowel disease. Leukocytosis present on admission; improving BUN/creatinine within normal limits Repeat CT abdomen/pelvis with oral contrast done on 07/14 shows small amount of pneumoperitoneum, decreased from previous day. Interval development of small bowel dilation favoring ileus. Increasing size of small bilateral pleural effusion, atelectasis. Plan; Diet changed to low fiber. Continue to encourage ambulation Pain control with Toradol, oxycodone Possible DC in a.m. if he continues to do well incentive spirometry #GERD - on iv Protonix Notes For Next Care Provider 64 yo male with pmhx of inguinal hernia (s/p repair 07/13/2025), BPH, GERD, prostate cancer (in 2013) who presents s/p inguinal hernia repair for severe abdominal pain. Found to have concern for colonic perforation, admitted to medicine. Surgery consulted, recommended observation and repeat imaging. Course complicated by ileus followed up by diarrhea. Cdiff negative. On 07/18/2025 per surgery and medicine medically stable for discharge. To do: [ ] f/u with surgery [ ] patient requested GI follow up outpatient Medication Changes From Visit -see below Admission HPI Per Admitting Provider 64 yo male with pmhx of inguinal hernia (s/p repair 07/13/2025), BPH, GERD, prostate cancer (in 2013) who presents s/p inguinal hernia repair for severe abdominal pain. During procedure, surgical concern for nicked bowel, which was subsequently sutured by the surgeon and disclosed to family. Patient sent to ED for further workup for severe abdominal pain in post operative unit. In the ED, CT abdomen/pelvis revealing free air concerning for bowel perforation. Surgery consulted, recommended conservative management and no indication for emergent procedure at this time. Recommended medical admission. Patient seen and examined at bedside. Patient doing ok at this time, accompanied by and child. Patient states post op course today complicated by unbearable severe pain. Improved with morphine, did not get touched by dilaudid. Has some nausea as well. Described pain as sharp and constant in lower abdomen. Discharge Exam Gen: A&O 3 NAD HEENT: NCAT, EOMI, not icteric. External ears normal. No rhinorrhea. Moist mucous membranes. Neck: Supple, full range of motion, no observable masses, No meningeal sign. Lungs: No Respiratory distress. CV: RRR, no edema. Abdomen: trace tenderness to palpation around wound sites MSK: post op dressings noted Skin: No rashes, petechiae, lesions. Normal color per patient. Neuro: Normal Gait, Grossly intact. Psych: Appropriate for situation. Updated Medication List Medication Instructions Recorded Confirmed Type omeprazole 20 mg capsule,delayed 20 mg PO UD PRN Heartburn 06/08/22 07/13/25 History release loratadine 10 mg tablet (Claritin) 10 mg PO UD PRN allergies 06/19/22 07/13/25 History aspirin 81 mg tablet,delayed 81 mg PO BID #60 tabs 06/24/22 07/13/25 Rx release montelukast 10 mg tablet 10 mg PO DAILY 07/13/25 07/13/25 History oxycodone-acetaminophen 5 mg-325 1 tab PO UD PRN pain 07/13/25 07/13/25 History mg tablet (Percocet) amoxicillin 500 mg-potassium 1 tab PO BID 3 days #6 tabs 07/18/25 Rx clavulanate 125 mg tablet (Augmentin) oxycodone 5 mg tablet 5 mg PO Q4H PRN pain 3 days #12 07/18/25 Rx tabs pantoprazole 40 mg tablet,delayed 40 mg PO DAILY #30 tabs 07/18/25 Rx release Hospital Stay Data Consultations 07/13/25 16:57 Consult General Surgery Stat 07/13/25 17:53 ED Decision to Admit Stat Diagnostic Imagining Performed 07/13/25 16:09 CT abd pelvis IV con only Stat 07/14/25 10:19 CT abd pelvis oral con only Urgent Pending Results Patient Have Any Pending Studies at Discharge: No Discharge Instructions Given to Patient (Per Discharging Provider) Diagnosis: colon perforation Follow Ups: PCP, surgery, GI Incidental Findings: bilateral pleural effusions, atelectasis 1. Please follow up with PCP, surgery, GI (per patient requested Dr. Lyle) 2. Stay hydrated! 3. Good post surgical wound care, per surgery. Total Time Total Time Spent Total Time Spent (In Minutes): I spent a total of 35 minutes in direct patient care, including [id number] time with the patient and/or family, reviewing medical records, ordering and reviewing diagnostic tests, and coordinating care with other healthcare providers. This time includes: history taking, physical examination, medical decision making, counseling, ECG interpretation, imaging interpretation, lab interpretation, orders, and education, excluding time spent in the performance of separately billed services.
== END 2025-07-18 16:55 | disposition home or self-care (01) | DRG 920 ==
LOC: ED 16:00 → SUATTDRO 18:17 → EDINP 18:17 → 3N 21:22